=== PATIENT | male | born 1985 | race Caucasian/White ===

== ENCOUNTER → 2018-05-03 16:22 | Outpatient (CLI) | payer MEDICAID, SELFPAY ==
--- NOTE | 2018-05-03 16:32 | CT_ITS ---
STUDY: CT BRAIN WITH AND WITHOUT CONTRAST REASON FOR EXAM: Male, 32 years old. Hit right eye with sledgehammer. Right periorbital pain, light sensitivity. History of bipolar disorder. RADIATION DOSAGE (If Supplied By Facility): CTDIvol = ( 39.78 ) mGy, DLP = ( 1891.52 ) mGycm TECHNIQUE: Transaxial CT imaging of the brain was performed pre and post contrast administration. The examination was performed with intravenous administration of 100 ml of Isovue 300 contrast material. Individualized dose optimization techniques were used for this CT. COMPARISON: None. FINDINGS: Normal soft tissue structures. Normal calvarium. Normal size ventricles and extra-axial spaces for the patient's age. Normal white matter tracts of the cerebral hemispheres. Normal basal ganglia and thalami. Normal brainstem. Normal cerebellum. There is no intracranial hemorrhage. No enhancing brain lesion. There are no findings of an acute ischemic infarction. Normal visualized paranasal sinuses. CT/Brain/Head W/WO Contrast IMPRESSION: Normal unenhanced and enhanced CT scan of the brain. Electronically Signed: Reinier Flores MD at 17:16 EDT , Service support ,
--- NOTE | 2018-05-03 16:33 | CT_ITS ---
STUDY: CT FACIAL BONES WITH CONTRAST REASON FOR EXAM: Male, 32 years old. Hit right eye with sledgehammer, right orbital pain and light sensitivity. RADIATION DOSAGE (If Supplied By Facility): CTDIvol = ( 39.78 ) mGy, DLP = ( 1891.52 ) mGycm TECHNIQUE: The patient was scanned in a multi detector CT scanner. Transaxial imaging was performed following the intravenous administration of 100 ml of Isovue 300 contrast material. Sagittal and coronal images were reconstructed. Individualized dose optimization techniques were used for this CT. COMPARISON: None. FINDINGS: Normal soft tissue structures. There are moderate accumulations of cerumen in the bilateral external auditory canals. Normal orbital stauffer and orbital contents. Normal nasal bones and anterior nasal spine. Normal facial bones. There is no demonstrated fracture. Subcentimeter soft tissue density of mucoperiosteal thickening versus polyp or mucous inclusion cyst noted at the anteromedial margin of the right maxillary sinus. CT/Sinus/Facial Bone WITH Contras IMPRESSION: No acute fracture of the facial bones. Electronically Signed: Reinier Flores MD at 17:33 EDT , Service support ,
== END ==
PROVIDERS: Family Provider Family Medicine; PCP Family Medicine; Visit Provider Family Medicine
DX: S05.91XA Unspecified injury of right eye and orbit, initial encounter (principal)
CPT/HCPCS: 70470; 70487; Q9967

== ENCOUNTER 2018-09-04 14:54 | Emergency (ER) | payer MEDICAID, SELFPAY ==
[2018-09-04 14:55] VITALS: BP 113/69; PULSE 104; RESP 16; TEMP 36.3; O2SAT 94; BMI 33.9
--- NOTE | 2018-09-04 14:58 | NURSING ---
NO OLD EKGS
--- NOTE | 2018-09-04 15:07 | RAD_ITS ---
STUDY: X-RAY CHEST REASON FOR EXAM: Male, 33 years old. Chest pain TECHNIQUE: Single AP portable view of the chest. COMPARISON: None. FINDINGS: The lungs are clear but incompletely expanded. There is no demonstrated pleural abnormality. Normal size heart. Normal mediastinum and ana m. Normal visualized pulmonary arteries. Normal visualized aortic arch and descending thoracic aorta. Normal visualized thoracic spine. Normal visualized ribs, clavicles, and shoulders. There is no demonstrated abnormality of the visualized soft tissue structures of the upper abdomen. RAD/Chest 1 View (Portable) IMPRESSION: No acute chest disease. Electronically Signed: Wyatt Riddle MD at 16:10 EST , Service support ,
--- NOTE | 2018-09-04 15:07 | EKG12_ITS ---
Test Reason : CP Blood Pressure : / mmHG Vent. Rate : 101 BPM Atrial Rate : 101 BPM P-R Int : 186 ms QRS Dur : 088 ms QT Int : 366 ms P-R-T Axes : 032 015 036 degrees QTc Int : 474 ms Sinus tachycardia Otherwise normal ECG Confirmed by ALISA RAYMOND, TELLY ([id number]), editor dictionary NATASHA BAZZI ([id number]) on 09/07/2018 1:20:42 PM Referred By: DANNA Confirmed By:TELLY CUELLAR MD
--- NOTE | 2018-09-04 15:09 | ED.VISSUMM ---
- ER Visit Summary Date of Service: 09/04/18 Chief Complaint: Chest pain History of Present Illness: The patient is a 33 M presenting with chest pain. Patient states it started 1 week ago. He states he has had constant pain for the past 1 week. He states the pain is sharp and is substernal. He denies radiation. Pain is worsened with coughing. He has mild shortness of breath associated with this. He denies nausea, vomiting, diaphoresis. He has no coronary artery disease risk factors, no PE/DVT risk factors. Physical Examination: Vitals are stable. HR 104. Patient is afebrile. Alert no acute distress. HEENT exam is unremarkable. Neck is supple. Lungs are clear and equal bilaterally. Chest wall tenderness to palpation with no crepitus Heart is regular rate and rhythm. Abdomen is soft nontender nondistended. Extremities are unremarkable. Skin is warm and dry. Remainder of exam is unremarkable. Emergency Department Course and Treatment: Patient was given aspirin on arrival. EKG is sinus tachycardia rate of 101. He was given Toradol IV. CBC, chemistries unremarkable. Troponin is negative. D-dimer is normal. Chest x-ray shows no acute process. Patient is resting comfortably on reevaluation. Advised to follow-up with primary care physician. Advised return to ED for worsening complaints. Disposition: Discharge home Impression: Chest wall pain This note was generated with [employer] dictation software. It may contain incorrect words, spelling, and punctuation that were not noted in review of the chart prior to signing ED Disposition - Plan for ED Patient: Chief Complaint: Chest Pain Instructions: ED Chest Pain Atypical Unkn Cause Referrals: Brandyn Reed [Primary Care Provider] -
--- NOTE | 2018-09-04 15:13 | ED.DCSUM_ITS ---
- ER Visit Summary Date of Service: 09/04/18 Chief Complaint: Chest pain History of Present Illness: The patient is a 33 M presenting with chest pain. Patient states it started 1 week ago. He states he has had constant pain for the past 1 week. He states the pain is sharp and is substernal. He denies ra diation. Pain is worsened with coughing. He has mild shortness of breath associated with this. He denies nausea, vomiting, diaphoresis. He has no coronary artery disease risk factors, no PE/DVT risk factors. Physical Examination: Vitals are stable. HR 104. Patient is afebrile. Alert no acute distress. HEENT exam is unremarkable. Neck is supple. Lungs are clear and equal bilaterally. Chest wall tenderness to palpation with no crepitus Heart is regular rate and rhythm. Abdomen is soft nontender nondistended. Extremities are unremarkable. Skin is warm and dry. Remainder of exam is unremarkable. Emergency Department Course and Treatment: Patient was given aspirin on arrival. EKG is sinus tachycardia rate of 101. He was given Toradol IV. CBC, chemistries unremarkable. Troponin is negative. D-dimer is normal. Chest x- ray shows no acute process. Patient is resting comfortably on reevaluation. Advised to follow-up with primary care physician. Advised return to ED for worsening complaints. Disposition: Discharge home Impression: Chest wall pain This note was generated with blabfeed dictation software. It may contain incorrect words, spelling, and punctuation that were not noted in review of the chart prior to signing ED Disposition - Plan for ED Patient: Chief Complaint: Chest Pain Instructions: ED Chest Pain Atypical Unkn Cause Referrals: Brandyn Reed [Primary Care Provider] -
[2018-09-04] MEDS: Aspirin 81 MG TAB.CHEW 324 MG PO (15:18)
[2018-09-04] MEDS: Ketorolac 30 MG/ML Syringe IV (15:18)
[2018-09-04 15:27] LABS: Absolute Lymphocyte Count 2.44 X10^3/ul (0.83-4.51); Absolute Neutrophil Count 3.8 X10^3/uL (2.0-7.7); Basophil# 0.04 X10^3/uL; Basophil% 0.6 % (0-1); Eosinophil# 0.24 X10^3/uL; Eosinophils% 3.3 % (0-5); Hematocrit 40.8 % (40-54); Hemoglobin 13.4 g/dl (13.0-16.5); Lymphocyte # 2.44 X10^3/ul (4.0); Lymphocyte % 33.8 % (19-41); Mean Corp Hgb Conc 32.8 g/gl (32-36); Mean Corpuscular Hgb 30.9 pg (27.0-32.0); Mean Platelet Vol. 9.6 fl (6.2-12.0); Monocyte# 0.71 X10^3/uL; Monocyte% 9.8 % (0-10); Neutrophil # 3.77 X10^3/uL (2.7-7.7); Neutrophil % 52.4 % (47-70); POSITIVE COUNT NO; POSITIVE DIFFERENTIAL NO; POSITIVE MORPHOLOGY NO; Platelet Count 329 K/mm3 (150-450); RBC Distribution Width CV 12.6 % (11.6-14.6); RBC Distribution Width SD 43.3 fl (35.1-43.9); Red Blood Count 4.34 M/mm3 (4.6-6.2); White Blood Count 7.2 K/mm3 (4.4-11.0)
[2018-09-04 15:33] LABS: D-Dimer Quantitative (DVT/PE) 0.32 FEU/ug/m (0.27-0.49)
[2018-09-04 15:40] LABS: Anion Gap 9 (5-15); BUN 11 mg/dL (7-18); BUN/Creat Ratio 10.9 RATIO (10-20); Calcium,Total 8.4 mg/dL (8.5-10.1); Chloride 108 mmol/L (98-107); Creatinine, Serum 1.01 mg/dL (0.70-1.30); EST Glomerular Filtration Rate 91 mL/min (>60); Est Glom Filt Rate - Afr Amer 110 mL/min (>60); Glucose 100 mg/dL (74-106); Potassium 4.3 mmol/L (3.5-5.1); Sodium Level 142 mmol/L (136-145)
--- NOTE | 2018-09-04 15:54 | ED.RN ---
THIS RN CALLED [facility] 2X WITH NO ANSWER TO OBTAIN CONSENT TO TREAT FOR PT. VOICE MESSAGE LEFT ON VOICEMAIL TO CALL BACK TO ER. [facility] ALSO CONTACTED TO OBTAIN MED LIST. AWAITING FAX.
--- NOTE | 2018-09-04 16:30 | ED.DEP ---
ED Disposition - Plan for ED Patient: Chief Complaint: Chest Pain Instructions: ED Chest Pain Atypical Unkn Cause Referrals: Brandyn Reed [Primary Care Provider] -
[2018-09-04 17:01] VITALS: BP 128/79; PULSE 100; RESP 23; O2SAT 93
== END 2018-09-04 17:03 | disposition home or self-care (01) ==
LOC: ED 15:37
PROVIDERS: Emergency Provider Emergency Medicine; Family Provider Family Medicine; PCP Family Medicine
DX: R07.89 Other chest pain (principal); R00.0 Tachycardia, unspecified; R19.7 Diarrhea, unspecified; F31.9 Bipolar disorder, unspecified; Z79.899 Other long term (current) drug therapy
CPT/HCPCS: 71045; 80048; 80178; 84484; 85025; 85379; 93005; 96374; 99285; J7030; A4216

== ENCOUNTER 2018-10-19 20:30 | Emergency (ER) | payer MEDICAID, SELFPAY ==
[2018-10-19 20:32] VITALS: BP 135/69; PULSE 118; RESP 16; TEMP 36.4; O2SAT 95; BMI 34.4
--- NOTE | 2018-10-19 20:45 | ED.RN ---
pt will be placed on one on one observation.
--- NOTE | 2018-10-19 20:47 | ED.RN ---
pt presents to ed via police for suicidal ideation. pt states to this rn that he wants to be with his father. pt's father a few weeks ago. pt states that he would hang himself. When asked about prior attempts, he stated he has tried to hang himself in the past.
--- NOTE | 2018-10-19 20:52 | ED.DCSUM_ITS ---
- ER Visit Summary Date of Service: 10/19/18 Chief Complaint: Depressed and suicidal History of Present Illness: The patient is a 33 M history of depression and schizophrenia. Patient states his father of pancreatic cancer within the last several weeks. He is depressed about this and states I want to be with my dad. States she is depressed and suicidal. Currently living in a skilled nursing. He states in the last 2 days he has made statements about harming himself. He denies any overdose. He has been hospitalized for similar symptoms in the past but that was around 7 years ago. Physical Examination: Well-appearing young male. Vital signs are stable. He is afebrile. He does not look septic or toxic. No distress. I do not smell alcohol no other signs of toxidrome. He is awake alert and cooperative. He is currently not violent nor verbally abusive. H EENT exam unremarkable. Neck nontender. No lymphadenopathy. No signs of trauma. Lungs clear to auscultation bilaterally. Heart tachycardic rate about 110. No murmur. Chest wall nontender. Abdomen soft nontender. No signs of trauma. Patient is moving all 4 extremities. Neurovascular intact. No track earl. No signs of trauma. Calves are nontender without edema. Back nontender. Neurologically is awake alert with no focal motor deficits. Test Results: ED mental health evaluation, labs and crisis evaluation. CBC normal. BMP unremarkable. Normal gap. Tox came positive for methamphetamine. Alcohol negative. Emergency Department Course and Treatment: Patient doing well awaiting crisis evaluation. Treatment Plan: [] Disposition: [] Impression: Acute depression with suicidal ideation History of schizophrenia and depression This note was generated with PaymentWorksation software. It may contain incorrect words, spelling, and punctuation that were not noted in review of the chart prior to signing ED Disposition - Plan for ED Patient: Chief Complaint: Suicidal Referrals: Leonard Dejesus Chi, MD [Primary Care Provider] -
--- NOTE | 2018-10-19 20:58 | NURSING ---
[facility] CALLED ASKING ABOUT ADDITIONAL PATIENTS AND I INFORMED THEM ABOUT HIM AND THEY WILL BE COMING IN.
[2018-10-19 21:16] LABS: Amphetamine Urine VISTA NEGATIVE (<1000 ng/mL); Barbiturate Urine VISTA NEGATIVE (< 200 ng/mL); Benzodiazepine Urine VISTA NEGATIVE (< 200 ng/mL); Cocaine Urine VISTA NEGATIVE (< 300 ng/mL); Ecstacy Urine VISTA POSITIVE (< 500 ng/mL); Methadone Urine VISTA NEGATIVE (< 300 ng/mL); PCP Urine VISTA NEGATIVE (< 25 ng/mL); THC Urine VISTA NEGATIVE (< 50 ng/mL); Vista UDS pH Range 6
[2018-10-19 21:23] LABS: Absolute Lymphocyte Count 2.45 X10^3/ul (0.83-4.51); Absolute Neutrophil Count 4.5 X10^3/uL (2.0-7.7); Basophil# 0.04 X10^3/uL; Basophil% 0.5 % (0-1); Eosinophil# 0.21 X10^3/uL; Eosinophils% 2.6 % (0-5); Hematocrit 40.5 % (40-54); Hemoglobin 13.5 g/dl (13.0-16.5); Lymphocyte # 2.45 X10^3/ul (4.0); Lymphocyte % 30.1 % (19-41); Mean Corp Hgb Conc 33.3 g/gl (32-36); Mean Corpuscular Hgb 31.1 pg (27.0-32.0); Mean Corpuscular Volume 93.3 fL (80-94); Mean Platelet Vol. 9.2 fl (6.2-12.0); Monocyte# 0.95 X10^3/uL; Monocyte% 11.7 % (0-10); Neutrophil # 4.49 X10^3/uL (2.7-7.7); Platelet Count 340 K/mm3 (150-450); RBC Distribution Width CV 12.4 % (11.6-14.6); RBC Distribution Width SD 41.4 fl (35.1-43.9); Red Blood Count 4.34 M/mm3 (4.6-6.2); White Blood Count 8.2 K/mm3 (4.4-11.0)
[2018-10-19 21:25] LABS: POSITIVE COUNT NO; POSITIVE DIFFERENTIAL NO; POSITIVE MORPHOLOGY NO
[2018-10-19 21:30] VITALS: RESP 16
[2018-10-19 21:33] LABS: Anion Gap 10 (5-15); BUN 19 mg/dL (7-18); BUN/Creat Ratio 20.1 RATIO (10-20); Calcium,Total 8.9 mg/dL (8.5-10.1); Chloride 106 mmol/L (98-107); Creatinine, Serum 0.95 mg/dL (0.70-1.30); EST Glomerular Filtration Rate 98 mL/min (>60); Est Glom Filt Rate - Afr Amer 118 mL/min (>60); Glucose 108 mg/dL (74-106); Sodium Level 141 mmol/L (136-145)
[2018-10-19 22:30] VITALS: RESP 17
[2018-10-20] MEDS: traZODone 100 MG Tablet PO (00:03)
[2018-10-20] MEDS: MELATONIN 3 MG TABLET PO (00:03)
[2018-10-20 00:05] VITALS: BP 122/101; PULSE 87; RESP 16; O2SAT 94
--- NOTE | 2018-10-20 00:11 | EKG12_ITS ---
Test Reason : Blood Pressure : / mmHG Vent. Rate : 087 BPM Atrial Rate : 087 BPM P-R Int : 196 ms QRS Dur : 090 ms QT Int : 392 ms P-R-T Axes : 018 013 024 degrees QTc Int : 471 ms Normal sinus rhythm Normal ECG Confirmed by ALISA RAYMOND, TELLY ([id number]), web content editor NATASHA BAZZI ([id number]) on 10/23/2018 8:57:30 AM Referred By: CLINT Confirmed By:TELLY CUELLAR MD
[2018-10-20] MEDS: Divalproex Sodium 250 MG Tablet PO (00:19)
[2018-10-20 00:35] LABS: Bacteria 0 SEEN /hpf (None Seen); Mucous, Urine 0 SEEN /hpf (<or=2+); Red Blood Cells-Urine 0 SEEN /hpf (0-5); Squamous Epithelial Cells - UA 0 SEEN /hpf (0-5); White Blood Cells 0 SEEN /hpf (0-5)
[2018-10-20 00:36] LABS: Color, Urine Yellow (Yellow); Glucose, Dipstick Normal (Normal); Ketone-Dipstick Negative (Negative); Leukocyte Esterase-Dipstick Negative /ul (Negative); Nitrite-Dipstick Negative (Negative); Occult Blood-Urine Negative /ul (Negative); Protein-Dipstick Negative (Negative); Specific Gravity, Urine 1.015 (1.002-1.030); Urine Bilirubin Dipstick Negative (Negative); Urine Clarity Clear (Clear); Urine Urobilinogen Normal (Normal); Urine pH 6.5 (5.0 - 8.0)
[2018-10-20 00:55] LABS: AST(SGOT) 11 U/L (15-37); Alanine Aminotransfer ALT/SGPT 37 U/L (16-61); Albumin, Serum 3.7 g/dL (3.2-5.0); Alkaline Phosphatase 64 U/L (45-117); Globulin 3.9 g/dL (2.2-4.2); Protein, Total 7.6 g/dL (6.4-8.2)
[2018-10-20 01:25] VITALS: RESP 16
[2018-10-20 03:11] VITALS: BP 126/96; PULSE 93; RESP 18; O2SAT 95
[2018-10-20 03:14] VITALS: TEMP 36.6
--- NOTE | 2018-10-20 03:33 | ED.RN ---
CALLED REPORT TO [facility]. CALLED PT'S MEDICAL GUARDIAN HERIBERTO TO NOTIFY OF TRANSFER.
[2018-10-20 03:35] VITALS: BP 126/96; PULSE 93; RESP 18; TEMP 36.6; O2SAT 95
== END 2018-10-20 04:20 | disposition short-term general hospital (02) ==
PROVIDERS: Emergency Provider Emergency Medicine; Family Provider Family Medicine Geriatric Medicine; PCP Family Medicine Geriatric Medicine
DX: F32.9 Major depressive disorder, single episode, unspecified (principal); F20.9 Schizophrenia, unspecified; R45.851 Suicidal ideations; R00.0 Tachycardia, unspecified; Z79.82 Long term (current) use of aspirin; Z79.899 Other long term (current) drug therapy
CPT/HCPCS: 36415; 80048; 80076; 80307; 80320; 81001; 85025; 93005; 99285; G0480

== ENCOUNTER 2018-11-08 19:18 | Emergency (ER) | payer MEDICAID, SELFPAY ==
[2018-11-08 19:19] VITALS: BP 138/101; PULSE 119; RESP 17; TEMP 36.3; O2SAT 97; BMI 28.7
--- NOTE | 2018-11-08 19:38 | ED.VISSUMM ---
- ER Visit Summary Date of Service: 11/08/18 Chief Complaint: Suicidal ideation History of Present Illness: The patient is a 33 M who presents for evaluation of suicidal ideation. Patient states he saw someone today that looked like his mother. It made him want to hang himself. He had similar symptoms earlier this month where he wanted to hang himself to be closer to his dad, who recently . Patient states he has tried to hang himself in the past. He states he is hearing voices as well that are telling him to kill himself. He denies doing anything to hurt himself today other than picking a scab off of his knee. He denies any alcohol or drug use. Physical Examination: Vital signs: afebrile, hemodynamically stable, no hypoxia on room air General: well nourished, well developed, in no distress Skin: warm, dry, no rash, no pallor, right knee with erythematous region consistent with recently picked off scab, no fresh lacerations earl noted HEENT: normocephalic and atraumatic; PERRL, EOMI, moist mucous membranes Cardiovascular: regular rate and rhythm without murmurs, no peripheral edema, 2+ pulses all distal extremities Respiratory: No increased work of breathing, lungs are clear to auscultation bilaterally, no rales, rhonchi or wheezing Abdominal: Abdomen is soft, nontender with normoactive bowel sounds, no guarding or rebound, no masses MSK: Moves all extremities, no deformities, normal strength Neuro: Awake and alert, oriented ?4. No facial droop, sensation and motor function intact and symmetric Test Results: Abnormal Lab Results 11/08/18 11/08/18 11/08/18 19:43 19:54 19:54 WBC 7.7 RBC 4.45 L Hgb 13.9 Hct 41.6 MCV 93.5 MCH 31.2 MCHC 33.4 RDW 12.3 RDW Differential 41.9 Plt Count 344 MPV 9.6 Immature Gran % (Auto) 0.100 Neut % (Auto) 59.1 Lymph % (Auto) 23.6 [place] % (Auto) 14.1 H Eos % (Auto) 2.7 Baso % (Auto) 0.4 Absolute Neuts (auto) 4.5 Absolute Lymphs (auto) 1.81 Total Counted Not Reportable Sodium 140 Potassium 3.8 Chloride 108 H Carbon Dioxide 23.0 Anion Gap 9 BUN 14 Creatinine 0.94 Estim Creat Clear Calc 116.49 Est GFR (MDRD) Af Amer 119 Est GFR (MDRD) Non-Af 98 BUN/Creatinine Ratio 14.8 Glucose 95 Calcium 8.5 Urine Opiates Screen NEGATIVE Urine Methadone Screen NEGATIVE Ur Barbiturates Screen NEGATIVE Ur Phencyclidine Scrn NEGATIVE Ur Amphetamines Screen NEGATIVE U Methamphetamin-MDMA POSITIVE H U Benzodiazepines Scrn NEGATIVE Urine Cocaine Screen NEGATIVE U Cannabinoids Screen NEGATIVE Ur Drug Screen Comment Ethyl Alcohol 11/08/18 19:54 WBC RBC Hgb Hct MCV MCH MCHC RDW RDW Differential Plt Count MPV Immature Gran % (Auto) Neut % (Auto) Lymph % (Auto) [place] % (Auto) Eos % (Auto) Baso % (Auto) Absolute Neuts (auto) Absolute Lymphs (auto) Total Counted Sodium Potassium Chloride Carbon Dioxide Anion Gap BUN Creatinine Estim Creat Clear Calc Est GFR (MDRD) Af Amer Est GFR (MDRD) Non-Af BUN/Creatinine Ratio Glucose Calcium Urine Opiates Screen Urine Methadone Screen Ur Barbiturates Screen Ur Phencyclidine Scrn Ur Amphetamines Screen U Methamphetamin-MDMA U Benzodiazepines Scrn Urine Cocaine Screen U Cannabinoids Screen Ur Drug Screen Comment Ethyl Alcohol < 3.0 Medications Given Discontinued Medications Acetaminophen (Tylenol) 650 mg PO X1 ONE Stop: 11/08/18 23:07 Last Admin: 11/08/18 23:21 Dose: 650 mg Emergency Department Course and Treatment: Medical screening exam was performed. Patient's workup remarkable only for tox screen positive for methamphetamine, which may be related to patient's use of ADHD medication. Patient was evaluated by crisis services, and patient into an inpatient facility is currently underway. Patient was given his evening medications. He also was given Tylenol for a headache. Final disposition will be pending placement for further inpatient management of suicidal ideation and auditory hallucinations. Treatment Plan: [] Disposition: [] Impression: Suicidal ideation, auditory hallucinations This note was generated with [employer] Industryation software. It may contain incorrect words, spelling, and punctuation that were not noted in review of the chart prior to signing ED Disposition - Plan for ED Patient: Chief Complaint: Suicidal Referrals: Leonard Dejesus Chi, MD [Primary Care Provider] -
--- NOTE | 2018-11-08 19:40 | CM.ED ---
SOCIAL WORK NOTE PT SENT IN BY [facility] FOR EVALUATION. [facility]IS TO ASSESS PT.
[2018-11-08 20:19] LABS: Anion Gap 9 (5-15); BUN 14 mg/dL (7-18); BUN/Creat Ratio 14.8 RATIO (10-20); Calcium,Total 8.5 mg/dL (8.5-10.1); Chloride 108 mmol/L (98-107); Creatinine, Serum 0.94 mg/dL (0.70-1.30); EST Glomerular Filtration Rate 98 mL/min (>60); Est Glom Filt Rate - Afr Amer 119 mL/min (>60); Estimated Creatinine Clearance 116.49 ml/min; Glucose 95 mg/dL (74-106); Potassium 3.8 mmol/L (3.5-5.1); Sodium Level 140 mmol/L (136-145)
[2018-11-08 20:25] LABS: Amphetamine Urine VISTA NEGATIVE (<1000 ng/mL); Barbiturate Urine VISTA NEGATIVE (< 200 ng/mL); Benzodiazepine Urine VISTA NEGATIVE (< 200 ng/mL); Cocaine Urine VISTA NEGATIVE (< 300 ng/mL); Ecstacy Urine VISTA POSITIVE (< 500 ng/mL); Methadone Urine VISTA NEGATIVE (< 300 ng/mL); PCP Urine VISTA NEGATIVE (< 25 ng/mL); THC Urine VISTA NEGATIVE (< 50 ng/mL); Vista UDS pH Range 6
[2018-11-08 20:32] LABS: Absolute Lymphocyte Count 1.81 X10^3/ul (0.83-4.51); Absolute Neutrophil Count 4.5 X10^3/uL (2.0-7.7); Basophil# 0.03 X10^3/uL; Basophil% 0.4 % (0-1); Eosinophil# 0.21 X10^3/uL; Eosinophils% 2.7 % (0-5); Hematocrit 41.6 % (40-54); Hemoglobin 13.9 g/dl (13.0-16.5); Lymphocyte # 1.81 X10^3/ul (4.0); Lymphocyte % 23.6 % (19-41); Mean Corp Hgb Conc 33.4 g/gl (32-36); Mean Corpuscular Hgb 31.2 pg (27.0-32.0); Mean Corpuscular Volume 93.5 fL (80-94); Mean Platelet Vol. 9.6 fl (6.2-12.0); Monocyte# 1.08 X10^3/uL; Monocyte% 14.1 % (0-10); Neutrophil # 4.54 X10^3/uL (2.7-7.7); Neutrophil % 59.1 % (47-70); Platelet Count 344 K/mm3 (150-450); RBC Distribution Width CV 12.3 % (11.6-14.6); RBC Distribution Width SD 41.9 fl (35.1-43.9); Red Blood Count 4.45 M/mm3 (4.6-6.2); White Blood Count 7.7 K/mm3 (4.4-11.0)
[2018-11-08 20:34] LABS: POSITIVE COUNT NO; POSITIVE DIFFERENTIAL NO; POSITIVE MORPHOLOGY NO
[2018-11-08 20:45] LABS: Alcohol, Blood (Medical)-Serum < 3.0 mg/dL
[2018-11-08] MEDS: Acetaminophen 325 MG Tablet 650 MG PO (23:21)
[2018-11-09] VITALS (17 sets, daily range): BP systolic 118–138; BP diastolic 74–97; PULSE 71–92; RESP 14–18; TEMP 36.3–36.5; O2SAT 94–99
[2018-11-09] MEDS: Divalproex Sodium 250 MG Tablet PO ×4 (00:26→17:46)
[2018-11-09] MEDS: Lithium Carbonate 300mg Capsule 300 MG PO ×3 (00:27→22:00)
[2018-11-09] MEDS: buPROPion (XL) 150 MG TABLET.XL PO ×2 (00:27→21:59)
[2018-11-09] MEDS: MELATONIN 3 MG TABLET PO ×2 (00:28→21:59)
[2018-11-09] MEDS: traZODone 100 MG Tablet PO ×2 (00:28→21:59)
--- NOTE | 2018-11-09 00:55 | NURSING ---
ACCEPTED TO [place] [id number] REPORT [phone]
[2018-11-09] MEDS: Acetaminophen 500 MG Tablet 1000 MG PO (05:59)
--- NOTE | 2018-11-09 07:21 | ED.RN ---
GERMAINE WITH [facility]ARE WE DON'T HAVE ANYONE AVAILABLE UNTIL LATER THIS AFTERNOON, ANITARY
--- NOTE | 2018-11-09 07:25 | ED.RN ---
JONATHAN WITH [facility] WE WILL BE THERE BETWEEN
--- NOTE | 2018-11-09 11:49 | ED.RN ---
ATTEMPTED TO CALL REPORT TO [facility], WILLEM DUDLEY STOPPED REPORTED WHEN SHE HEARD HE WAS BORDERLINE MRDD. EXPLAINED PT WAS HIGH FUNCTIONING AND ABLE TO DO EVERYTHING FOR HIMSELF. RN STATES SHE NEEDED TO TALK TO HER CHARGE NURSE AND WOULD CALL BACK. ANIRUDH THE CHARGE NURSE CALLED BACK STATING THEY DON'T THINK THEY CAN ACCEPT HIM AND AFTER LOOKING AT THE PAPERWORK THEY FEEL HE SHOULD BE ABLE TO GO TO THE LONG-TERM ON HIS SAFETY PAL SINCE HE IS AT A LONG-TERM. SAGE IS GOING TO CALL THE [facility]SELING [facility] AND CALL BACK TO LET US KNOW IF HE IS ACCEPTED OR NOT.
--- NOTE | 2018-11-09 12:23 | ED.RN ---
ANIRUDH CALLED AND [facility] IS REFUSING TH PATIENT. SHE STATED SHE IS CALLING THE [facility] TO LET THEM KNOW.
--- NOTE | 2018-11-09 12:24 | ED.RN ---
TREVER FROM THE COUNSELING C[facility] CALLED STATING MILENA IS ON THE MS3 AND WILL BE DOWN TO SEE THE PATIENT WHEN SHE IS DONE.
--- NOTE | 2018-11-09 15:21 | ED.RN ---
SPOKE WITH TREVER ABBOTT IS WORKING ON FINDING A PLACE FOR HIM FROM THE OFFICE HERE
--- NOTE | 2018-11-09 16:13 | EKG12_ITS ---
Test Reason : MEDICAL CLEARANCE Blood Pressure : / mmHG Vent. Rate : 070 BPM Atrial Rate : 070 BPM P-R Int : 184 ms QRS Dur : 094 ms QT Int : 406 ms P-R-T Axes : 034 025 053 degrees QTc Int : 438 ms Normal sinus rhythm Normal ECG Confirmed by KEYLA RAYMOND, THONY ([id number]), fashion editor NATASHA BAZZI ([id number]) on 11/13/2018 3:31:33 PM Referred By: ADITYA Confirmed By:THONY RAMIRES MD
[2018-11-09 16:49] LABS: ALB/GLOB Ratio 0.9 RATIO (0.9-2.4); AST(SGOT) 16 U/L (15-37); Alanine Aminotransfer ALT/SGPT 35 U/L (16-61); Albumin, Serum 3.6 g/dL (3.2-5.0); Alkaline Phosphatase 62 U/L (45-117); Anion Gap 7 (5-15); BUN 11 mg/dL (7-18); BUN/Creat Ratio 12.6 RATIO (10-20); Calcium,Total 8.7 mg/dL (8.5-10.1); Chloride 109 mmol/L (98-107); Creatinine, Serum 0.87 mg/dL (0.70-1.30); EST Glomerular Filtration Rate 108 mL/min (>60); Est Glom Filt Rate - Afr Amer 130 mL/min (>60); Estimated Creatinine Clearance 125.86 ml/min; Globulin 4.2 g/dL (2.2-4.2); Glucose 98 mg/dL (74-106); Potassium 4.2 mmol/L (3.5-5.1); Protein, Total 7.8 g/dL (6.4-8.2); Sodium Level 140 mmol/L (136-145)
[2018-11-09 17:01] LABS: Bacteria 0 SEEN /hpf (None Seen); Mucous, Urine 0 SEEN /hpf (<or=2+); Red Blood Cells-Urine 0 SEEN /hpf (0-5); Squamous Epithelial Cells - UA 0 SEEN /hpf (0-5); White Blood Cells 0 SEEN /hpf (0-5)
[2018-11-09 17:22] LABS: Color, Urine Yellow (Yellow); Glucose, Dipstick Normal (Normal); Ketone-Dipstick Negative (Negative); Leukocyte Esterase-Dipstick Negative /ul (Negative); Nitrite-Dipstick Negative (Negative); Occult Blood-Urine Negative /ul (Negative); Protein-Dipstick Negative (Negative); Urine Bilirubin Dipstick Negative (Negative); Urine Clarity Clear (Clear); Urine Urobilinogen Normal (Normal)
--- NOTE | 2018-11-09 17:24 | ED.RN ---
HERIBERTO DAS GUARDIAN [phone] TO BE CALLED WITH UPDATES
--- NOTE | 2018-11-09 19:24 | ED.RN ---
DISCUSSED WITH MD TO CANCEL 24 HOUR REFLEX URINE COLLECTION ORDER
[2018-11-09 20:43] LABS: AST(SGOT) 13 U/L (15-37); Alanine Aminotransfer ALT/SGPT 38 U/L (16-61); Albumin, Serum 3.7 g/dL (3.2-5.0); Alkaline Phosphatase 65 U/L (45-117); Bilirubin, Direct 0.09 mg/dL (0.00-0.30); Globulin 4.2 g/dL (2.2-4.2); Protein, Total 7.9 g/dL (6.4-8.2)
[2018-11-09 20:50] LABS: Valproic Acid (Depakene) Level 58 ug/mL (50-100)
[2018-11-09] MEDS: Ondansetron ODT 4 MG Tablet PO (21:02)
[2018-11-09] MEDS: LORazepam 1 MG Tablet 2 MG PO (22:18)
[2018-11-10] VITALS (18 sets, daily range): BP systolic 102–166; BP diastolic 77–90; PULSE 68–101; RESP 12–18; O2SAT 94–98
--- NOTE | 2018-11-10 00:42 | ED.RN ---
patient belongings list completed electronically on worklist; pt had multiple shirts and pairs of pants
[2018-11-10] MEDS: Lithium Carbonate 300mg Capsule 300 MG PO ×2 (09:22→21:20)
[2018-11-10] MEDS: Divalproex Sodium 250 MG Tablet PO ×3 (09:22→19:37)
--- NOTE | 2018-11-10 10:43 | NURSING ---
PER LINDSEY, AUNDREA. PATIENT ACCEPTED AT [facility]. 4 PEOPLE AHEAD OF HIM
--- NOTE | 2018-11-10 18:49 | ED.RN ---
LINDSEY IS ON SITE WORKING ON THIS PT
[2018-11-10] MEDS: traZODone 100 MG Tablet PO (21:20)
[2018-11-10] MEDS: MELATONIN 3 MG TABLET PO (21:20)
[2018-11-10] MEDS: buPROPion (XL) 150 MG TABLET.XL PO (21:20)
--- NOTE | 2018-11-10 22:10 | ED.RN ---
attempted to call legal guardian at this time. voice mailbox is full and unable to accept message. will attempt to call back later
== END 2018-11-10 22:38 ==
LOC: ED 19:46
PROVIDERS: Emergency Medicine; Emergency Provider Emergency Medicine; Family Provider Family Medicine Geriatric Medicine; PCP Family Medicine Geriatric Medicine
DX: R45.851 Suicidal ideations (principal); R44.0 Auditory hallucinations; Z91.5 Personal history of self-harm; Z79.82 Long term (current) use of aspirin; Z79.899 Other long term (current) drug therapy; R51 Headache
CPT/HCPCS: 80048; 80053; 80076; 80164; 80178; 80307; 80320; 81001; 85025; 93005; 99284; G0480

== ENCOUNTER → 2018-11-24 16:47 | Outpatient (CLI) | payer MEDICAID, SELFPAY ==
[2018-11-24 12:30] VITALS: BMI 32.3
== END ==
PROVIDERS: Family Provider Family Medicine Geriatric Medicine; PCP Family Medicine Geriatric Medicine; Referring Provider Physician Assistant Medical; Visit Provider Physician Assistant Medical
DX: N39.0 Urinary tract infection, site not specified (principal)
CPT/HCPCS: 87086

== ENCOUNTER 2018-12-01 20:53 | Emergency (ER) | payer MEDICAID, SELFPAY ==
[2018-12-01 20:53] VITALS: BMI 32.3
[2018-12-01 20:54] VITALS: BP 129/96; PULSE 130; RESP 18; TEMP 37.1; O2SAT 95; BMI 31.6
--- NOTE | 2018-12-01 21:06 | ED.RN ---
attempted to contact emergency guardian at this time. left message at this time to call back
--- NOTE | 2018-12-01 21:10 | ED.RN ---
patient legal guardian called back at this time
[2018-12-01 21:25] LABS: Absolute Lymphocyte Count 2.14 X10^3/ul (0.83-4.51); Absolute Neutrophil Count 5.4 X10^3/uL (2.0-7.7); Basophil# 0.03 X10^3/uL; Basophil% 0.3 % (0-1); Eosinophil# 0.19 X10^3/uL; Eosinophils% 2.2 % (0-5); Hematocrit 41.1 % (40-54); Hemoglobin 13.4 g/dl (13.0-16.5); Lymphocyte # 2.14 X10^3/ul (4.0); Lymphocyte % 24.9 % (19-41); Mean Corp Hgb Conc 32.6 g/gl (32-36); Mean Corpuscular Hgb 30.7 pg (27.0-32.0); Mean Corpuscular Volume 94.1 fL (80-94); Monocyte# 0.87 X10^3/uL; Monocyte% 10.1 % (0-10); Neutrophil # 5.38 X10^3/uL (2.7-7.7); Neutrophil % 62.5 % (47-70); POSITIVE COUNT NO; POSITIVE DIFFERENTIAL NO; POSITIVE MORPHOLOGY NO; Platelet Count 316 K/mm3 (150-450); RBC Distribution Width CV 12.5 % (11.6-14.6); RBC Distribution Width SD 42.8 fl (35.1-43.9); Red Blood Count 4.37 M/mm3 (4.6-6.2); White Blood Count 8.6 K/mm3 (4.4-11.0)
[2018-12-01 21:38] LABS: Alcohol, Blood (Medical)-Serum < 3.0 mg/dL
[2018-12-01 21:39] LABS: Anion Gap 10 (5-15); BUN 11 mg/dL (7-18); BUN/Creat Ratio 10.3 RATIO (10-20); Calcium,Total 8.7 mg/dL (8.5-10.1); Chloride 110 mmol/L (98-107); Creatinine, Serum 1.07 mg/dL (0.70-1.30); EST Glomerular Filtration Rate 85 mL/min (>60); Est Glom Filt Rate - Afr Amer 103 mL/min (>60); Estimated Creatinine Clearance 99.11 ml/min; Glucose 115 mg/dL (74-106); Sodium Level 143 mmol/L (136-145)
[2018-12-01 21:44] LABS: Amphetamine Urine VISTA NEGATIVE (<1000 ng/mL); Barbiturate Urine VISTA NEGATIVE (< 200 ng/mL); Benzodiazepine Urine VISTA NEGATIVE (< 200 ng/mL); Cocaine Urine VISTA NEGATIVE (< 300 ng/mL); Ecstacy Urine VISTA POSITIVE (< 500 ng/mL); Methadone Urine VISTA NEGATIVE (< 300 ng/mL); PCP Urine VISTA NEGATIVE (< 25 ng/mL); THC Urine VISTA NEGATIVE (< 50 ng/mL); Vista UDS pH Range 6
[2018-12-01 21:53] VITALS: RESP 16
--- NOTE | 2018-12-01 21:53 | ED.RN ---
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
--- NOTE | 2018-12-01 21:55 | EKG12_ITS ---
Test Reason : MHC Blood Pressure : / mmHG Vent. Rate : 099 BPM Atrial Rate : 099 BPM P-R Int : 190 ms QRS Dur : 092 ms QT Int : 362 ms P-R-T Axes : 031 018 035 degrees QTc Int : 464 ms Normal sinus rhythm Abnormal ECG Confirmed by TELLY CUELLAR MD ([id number]), photo editor NATASHA BAZZI ([id number]) on 12/04/2018 9:18:16 AM Referred By: Raven Encinas Confirmed By:TELLY CUELLAR MD
[2018-12-01 22:00] VITALS: RESP 16
[2018-12-01 22:19] LABS: AST(SGOT) 17 U/L (15-37); Alanine Aminotransfer ALT/SGPT 36 U/L (16-61); Albumin, Serum 3.7 g/dL (3.2-5.0); Alkaline Phosphatase 65 U/L (45-117); Bilirubin, Direct 0.07 mg/dL (0.00-0.30); Globulin 3.8 g/dL (2.2-4.2); Protein, Total 7.5 g/dL (6.4-8.2)
[2018-12-01 22:23] LABS: Valproic Acid (Depakene) Level 74 ug/mL (50-100)
--- NOTE | 2018-12-01 22:52 | ED.RN ---
CRISIS AT THE BEDSIDE
[2018-12-01 23:00] VITALS: RESP 17
[2018-12-02] VITALS (10 sets, daily range): BP systolic 123–129; BP diastolic 90–97; PULSE 49–112; RESP 14–16; TEMP 36.5; O2SAT 96–99
--- NOTE | 2018-12-02 00:18 | ED.VISSUMM ---
- ER Visit Summary Date of Service: 12/02/18 Chief Complaint: Suicidal ideation History of Present Illness: The patient is a 33 M who reports suicidal ideation since 11 AM. He states he has a plan to hang himself. He tells me he tried to squeeze his neck with his hand to choke himself. He did not lose consciousness. Past history significant for a bipolar disorder, schizophrenia, seizures, ADHD. Physical Examination: Vital signs remarkable for heart rate of 130 on triage. Patient is lying in bed no acute distress. He is alert and cooperative. Head neck examination is unremarkable with no sign of trauma. He has no ecchymosis on his neck. There is no carotid bruit. Heart is regular rate and rhythm. Lungs sounds are clear. Abdomen is soft nontender. Psychiatric evaluation reveals depressed affect with continued suicidal thoughts. Test Results: CBC and chemistry studies grossly unremarkable. LFTs normal. Tox screen positive for MDMA. EtOH negative. [place] is 0.60. Valproic acid is 74. EKG is sinus at 99 with no sign of acute ischemia. Emergency Department Course and Treatment: Patient has been cooperative in his room with a sitter. I spoke with Sierra from the counseling center who presented to evaluate the patient. Patient will likely require transfer and she is working on options at this point. Treatment Plan: [] Disposition: Transfer Impression: Suicidal ideation This note was generated with [employer] dictation software. It may contain incorrect words, spelling, and punctuation that were not noted in review of the chart prior to signing ED Disposition - Plan for ED Patient: Referrals: Leonard Dejesus Chi, MD [Primary Care Provider] -
[2018-12-02] MEDS: Acetaminophen 500 MG Tablet 1000 MG PO (01:05)
--- NOTE | 2018-12-02 03:17 | ED.RN ---
Patient has been accepted to [facility] nurse to nurse [phone]
--- NOTE | 2018-12-02 04:04 | ED.RN ---
REPORT CALLED TO CONNIE DUDLEY. TRANSPORTATION TO ADMINISTRATOR OF HOME HEALTH PT AT 10
--- NOTE | 2018-12-02 06:00 | ED.RN ---
SPOKE WITH CHETAN FROM PHARMACY. NO THERAPEUTIC INTERCHANGE FOR ATOMOXETINE AT [facility]
[2018-12-02] MEDS: Benztropine 2 MG Tablet 1 MG PO (08:31)
[2018-12-02] MEDS: Divalproex Sodium 250 MG Tablet PO (08:31)
[2018-12-02] MEDS: traZODone 100 MG Tablet PO (08:33)
[2018-12-02] MEDS: Lithium Carbonate 300mg Capsule 300 MG PO (08:34)
[2018-12-02] MEDS: buPROPion (XL) 150 MG TABLET.XL PO (08:34)
[2018-12-02] MEDS: MELATONIN 3 MG TABLET PO (08:34)
== END 2018-12-02 10:16 ==
PROVIDERS: Emergency Provider Emergency Medicine; Family Provider Family Medicine Geriatric Medicine; PCP Family Medicine Geriatric Medicine
DX: R45.851 Suicidal ideations (principal); F20.9 Schizophrenia, unspecified; F31.9 Bipolar disorder, unspecified; G40.909 Epilepsy, unspecified, not intractable, without status epilepticus; F90.9 Attention-deficit hyperactivity disorder, unspecified type; Z79.899 Other long term (current) drug therapy
CPT/HCPCS: 36415; 80048; 80076; 80164; 80178; 80307; 80320; 85025; 93005; 99285; G0480

== ENCOUNTER → 2018-12-10 10:20 | Outpatient (CLI) | payer MEDICAID, SELFPAY ==
[2018-12-01 20:54] VITALS: BMI 31.6
--- NOTE | 2018-12-10 10:26 | RAD_ITS ---
STUDY: X-RAY - RIGHT HAND REASON FOR EXAM: Male, 33 years old. Pain worse involving the third digit following injury. Bruising. TECHNIQUE: 3 view(s) of the hand. COMPARISON: None. FINDINGS: Normal radiocarpal articulation. Normal distal radioulnar joint. Normal visualized carpal bones. Normal carpal articulations Normal carpometacarpal articulation of the thumb. Normal second through fifth carpometacarpal joints. Normal metacarpi. Normal metacarpophalangeal joint of the thumb. Normal interphalangeal joint of the thumb. Normal proximal and distal phalanges of the thumb. Normal metacarpophalangeal joints of the second through fifth fingers. Normal proximal and distal interphalangeal joints of the second through fifth fingers. Nondisplaced avulsion type fracture at the base of the middle phalanx of the third digit along its volar aspect. Soft tissue swelling. RAD/Hand Min 3 Views IMPRESSION: Nondisplaced avulsion type fracture at the base of the middle phalanx of the third digit along its volar aspect. Soft tissue swelling. Electronically Signed: Alexis Hernandez MD at 14:06 EST , Service support ,
== END ==
PROVIDERS: Family Provider Family Medicine Geriatric Medicine; PCP Family Medicine Geriatric Medicine; Referring Provider Family Medicine Geriatric Medicine; Visit Provider Family Medicine Geriatric Medicine
DX: S62.652A Nondisplaced fracture of middle phalanx of right middle finger, initial encounter for closed fracture (principal); X58.XXXA Exposure to other specified factors, initial encounter; Y93.9 Activity, unspecified; Y92.9 Unspecified place or not applicable; Y99.9 Unspecified external cause status
CPT/HCPCS: 73130

== ENCOUNTER 2018-12-24 19:51 | Emergency (ER) | payer MEDICAID, SELFPAY ==
[2018-12-24 19:52] VITALS: BP 137/96; PULSE 110; RESP 18; TEMP 36.2; O2SAT 95; BMI 32.3
--- NOTE | 2018-12-24 20:24 | CM.ED ---
Social Work Assessment Reason for Consult: Suicidal Ideation Informant: Kalyan Pritchard RN Information obtained from: Medical record and pt. Introduced self and role at [facility]. The pt is alert and oriented x3, but does have a volunteer guardian, La Bryan. Pt presents with flat affect as evidenced by minimal eye contact, an no change in tone of voice or expression throughout conversation. Living Arrangements: Pt reports to live at a [facility]. Denies concerns about safety in [place] or concerns of obtaining necessities. States that his guardian lives locally and sees him frequently. Supports: Pt identifies La (LG), Felipe (LG's spouse), Jaime (LGs son) and his own mother as his primary supports. Stressors: States that it is the 3 month anniversary of his step-father's . Claims that this is continually a stressor for him this time of month and he was very close with his step-father. He also identifies his brother ([id number]) as a stressor. States that he was supposed to go to a longterm house today, and never showed up and now he is concerned about him and thinks the police will be after him. Emotional support provided to pt. Mental Health Hx: Pt is established with a therapist at [facility] and sees Dr. Salazar at the counseling center. Saw his therapist today and has an appointment with Dr. Salazar next . Reports that he contact crisis today and they recommended that he come into the ED for evaluation. Pt reports SI. Plan would be to cut himself or hang himself. States I have pretty good veins so there will be a lot of blood. Reports that he would cut himself with a razor or comb, or hang himself with the cable wires in his room. Does have a hx of a past attempt when he was college and states he spent a year in the [facility] [place]. Pt has been psychiatrically hospitalized his past 3 visits to the ED for SI. Pt to be evaluated by crisis for psychiatric hospitalization for stabilization. Substance Abuse Hx: Pt reports ETOH abuse approximately 10 years ago, but denies any current drug use. Intervention(s): C-SSRS completed and confirm that pt is at a high risk for suicide lethality. Crisis to evaluate for psychiatric hospitalization. PLAN: Crisis to evaluate for psychiatric hospitalization. Tamie Miller, STRAIGHTENING MACHINE OPERATOR, JACQUELINE
[2018-12-24 20:46] LABS: Absolute Lymphocyte Count 2.64 X10^3/ul (0.83-4.51); Absolute Neutrophil Count 7.3 X10^3/uL (2.0-7.7); Basophil# 0.05 X10^3/uL; Basophil% 0.5 % (0-1); Eosinophil# 0.36 X10^3/uL; Eosinophils% 3.3 % (0-5); Hematocrit 41.6 % (40-54); Hemoglobin 13.7 g/dl (13.0-16.5); Lymphocyte # 2.64 X10^3/ul (4.0); Lymphocyte % 23.9 % (19-41); Mean Corp Hgb Conc 32.9 g/gl (32-36); Mean Corpuscular Hgb 30.8 pg (27.0-32.0); Mean Corpuscular Volume 93.5 fL (80-94); Mean Platelet Vol. 9.7 fl (6.2-12.0); Monocyte# 0.73 X10^3/uL; Monocyte% 6.6 % (0-10); Neutrophil # 7.26 X10^3/uL (2.7-7.7); Neutrophil % 65.6 % (47-70); Platelet Count 367 K/mm3 (150-450); RBC Distribution Width CV 12.5 % (11.6-14.6); RBC Distribution Width SD 42.5 fl (35.1-43.9); Red Blood Count 4.45 M/mm3 (4.6-6.2); White Blood Count 11.1 K/mm3 (4.4-11.0)
[2018-12-24 20:48] LABS: POSITIVE COUNT NO; POSITIVE DIFFERENTIAL NO; POSITIVE MORPHOLOGY NO
[2018-12-24 20:59] LABS: Amphetamine Urine VISTA NEGATIVE (<1000 ng/mL); Barbiturate Urine VISTA NEGATIVE (< 200 ng/mL); Benzodiazepine Urine VISTA NEGATIVE (< 200 ng/mL); Cocaine Urine VISTA NEGATIVE (< 300 ng/mL); Ecstacy Urine VISTA NEGATIVE (< 500 ng/mL); Methadone Urine VISTA NEGATIVE (< 300 ng/mL); PCP Urine VISTA NEGATIVE (< 25 ng/mL); THC Urine VISTA NEGATIVE (< 50 ng/mL); Vista UDS pH Range 6
[2018-12-24 21:02] LABS: Anion Gap 10 (5-15); BUN 16 mg/dL (7-18); BUN/Creat Ratio 17.2 RATIO (10-20); Calcium,Total 8.6 mg/dL (8.5-10.1); Chloride 110 mmol/L (98-107); Creatinine, Serum 0.93 mg/dL (0.70-1.30); EST Glomerular Filtration Rate 100 mL/min (>60); Est Glom Filt Rate - Afr Amer 121 mL/min (>60); Estimated Creatinine Clearance 114.03 ml/min; Glucose 121 mg/dL (74-106); Potassium 4.3 mmol/L (3.5-5.1); Sodium Level 143 mmol/L (136-145)
--- NOTE | 2018-12-24 21:11 | ED.RN ---
CALLED CRISIS TO SEE THIS PT
--- NOTE | 2018-12-24 21:12 | ED.VISSUMM ---
- ER Visit Summary Date of Service: 12/24/18 Chief Complaint: Suicidal ideation History of Present Illness: The patient is a 33 M presenting with suicidal ideation. Patient states that he has been very depressed about his father dying. He states this occurred 3 months ago. He has plan to hang himself or cut himself. He has past suicide attempt with hanging and cutting. He was recently admitted to [facility] and was discharged 2.5 weeks ago per the patient. He has a history of bipolar disorder. He denies alcohol or drug use. Physical Examination: Vitals are stable. Patient is afebrile. Alert no acute distress. HEENT exam is unremarkable. Neck is supple. Lungs are clear and equal bilaterally. Heart is regular rate and rhythm. Abdomen is soft nontender nondistended. Extremities are unremarkable. Skin is warm and dry. No focal neurologic deficit. Depressed affect with suicidal ideation Remainder of exam is unremarkable. Emergency Department Course and Treatment: CBC, chemistries unremarkable. Tox and alcohol are negative. Discussed with the counseling center for evaluation. Disposition: Per counseling center Impression: Suicidal ideation This note was generated with [employer] dictation software. It may contain incorrect words, spelling, and punctuation that were not noted in review of the chart prior to signing ED Disposition - Plan for ED Patient: Referrals: Leonard Dejesus Chi, MD [Primary Care Provider] -
--- NOTE | 2018-12-24 21:23 | ED.RN ---
LINDSEY CALLED BACK, SHE WILL BE IN
[2018-12-24 22:14] VITALS: PULSE 89; RESP 16; O2SAT 97
[2018-12-25 01:02] VITALS: BP 131/80; PULSE 85; RESP 16; TEMP 36.4; O2SAT 94
--- NOTE | 2018-12-25 03:02 | ED.RN ---
PER CRISIS, PT IS ACCEPTED TO [facility], INFO GIVEN TO RN TO CALL REPORT
[2018-12-25 03:18] VITALS: BP 131/81; PULSE 81; RESP 16; RESP 18; O2SAT 95
--- NOTE | 2018-12-25 04:45 | ED.RN ---
THIS NURSE CALLED [facility] AND GAVE THEM AN ETA OF ARRIVING AT THEIR FACILITY AROUND 10:00AM.
[2018-12-25 04:57] VITALS: BP 122/87; PULSE 81; RESP 16; O2SAT 98
[2018-12-25 05:01] VITALS: TEMP 36.4
[2018-12-25 07:44] VITALS: BP 126/89; PULSE 80; RESP 16; O2SAT 92
--- NOTE | 2018-12-25 07:45 | ED.RN ---
Pt alert and awake. Remains cooperative and talking with sitter. waiting on ordered breakfast. I spoke with guardian and she is enroute to bring clothes for admit to [facility].
[2018-12-25 09:28] VITALS: BP 124/92; PULSE 87; RESP 16; O2SAT 95
== END 2018-12-25 09:47 ==
LOC: ED 21:18
PROVIDERS: Emergency Provider Emergency Medicine; Family Provider Family Medicine Geriatric Medicine; PCP Family Medicine Geriatric Medicine
DX: R45.851 Suicidal ideations (principal); F31.9 Bipolar disorder, unspecified; Z79.899 Other long term (current) drug therapy; Z91.5 Personal history of self-harm
CPT/HCPCS: 80048; 80307; 80320; 85025; 99284; G0480

== ENCOUNTER 2019-01-06 18:27 | Emergency (ER) | payer MEDICAID, SELFPAY ==
[2019-01-06 18:28] VITALS: BP 133/88; RESP 120; TEMP 37.1; O2SAT 96; BMI 33.2
--- NOTE | 2019-01-06 19:24 | ED.DCSUM_ITS ---
- ER Visit Summary Date of Service: 01/06/19 Chief Complaint: Abdominal pain History of Present Illness: The patient is a 33 M who complains of generalized abdominal pain along with nausea, vomiting, and diarrhea since yesterday. He denies fever. He denies any prior abdominal surgeries. Past history significant for ADHD, bipolar disorder, schizophrenia. Physical Examination: Vital signs significant for heart rate of 120. Patient is lying in bed no acute distress. He is nontoxic appearing. Head and neck examination unremarkable. Heart is slightly tachycardic and regular. Lung sounds are clear. Abdomen is soft with mild diffuse tenderness. No guarding or rebound. Hyperactive bowel sounds are noted throughout. Test Results: CBC and chemistry studies unremarkable. Liver function test normal. Sherburn and Depakote unremarkable. Acute abdominal series shows constipation with no obstruction. Emergency Department Course and Treatment: Patient was given IV fluids, Bentyl, and Zofran. On repeat evaluation he continued to complain of nausea. He was given a dose of Reglan. At this time patient still complains of some nausea. He has not any vomiting here. We discharged home tonight. He will be given Zo sheridan for home. He will be given prescriptions for Zofran and MiraLAX. Treatment Plan: [] Disposition: Discharge Impression: 1. Abdominal pain 2. Constipation This note was generated with [employer] dictation software. It may contain incorrect words, spelling, and punctuation that were not noted in review of the chart prior to signing ED Disposition - Plan for ED Patient: Referrals: Leonard Dejesus Chi, MD [Primary Care Provider] -
[2019-01-06] MEDS: 0.9% Normal Saline 1,000 ML 150 ML IV (19:35)
[2019-01-06] MEDS: Dicyclomine 10 MG Capsule 20 MG PO (19:37)
[2019-01-06] MEDS: Ondansetron 4 MG/2 ML Vial IV (19:37)
--- NOTE | 2019-01-06 19:43 | RAD_ITS ---
STUDY: X-RAY - ACUTE ABDOMINAL SERIES REASON FOR EXAM: Male, 33 years old. Diarrhea. Vomiting. Chest pain. TECHNIQUE: Single view of the chest. Supine, 4 view(s) of the abdomen were obtained. COMPARISON: September 04, 2018. FINDINGS: Low lung volumes. Cardiac silhouette unremarkable. Pulmonary vascularity unremarkable. Aorta unremarkable. No focal patchy airspace opacities. No pleural effusions. Osseous structures intact. No pneumothorax. Left transitional lumbosacral anatomy. No intra-abdominal free air. Nonobstructive bowel gas pattern. Constipation. RAD/Acute Abdomen Inc Chest IMPRESSION: No acute cardiopulmonary findings Nonobstructive bowel gas pattern Constipation Electronically Signed: Felipe Green DO at 20:57 EDT Tel , Service support ,
[2019-01-06 19:50] LABS: Absolute Lymphocyte Count 2.22 X10^3/ul (0.83-4.51); Absolute Neutrophil Count 3.6 X10^3/uL (2.0-7.7); Basophil# 0.03 X10^3/uL; Basophil% 0.4 % (0-1); Eosinophil# 0.36 X10^3/uL; Eosinophils% 5.2 % (0-5); Hematocrit 42.2 % (40-54); Hemoglobin 13.6 g/dl (13.0-16.5); Lymphocyte # 2.22 X10^3/ul (4.0); Mean Corp Hgb Conc 32.2 g/gl (32-36); Mean Corpuscular Volume 93.2 fL (80-94); Mean Platelet Vol. 9.6 fl (6.2-12.0); Monocyte# 0.77 X10^3/uL; Monocyte% 11.1 % (0-10); Neutrophil # 3.56 X10^3/uL (2.7-7.7); Neutrophil % 51.3 % (47-70); POSITIVE COUNT NO; POSITIVE DIFFERENTIAL NO; POSITIVE MORPHOLOGY NO; Platelet Count 338 K/mm3 (150-450); RBC Distribution Width CV 12.7 % (11.6-14.6); Red Blood Count 4.53 M/mm3 (4.6-6.2); White Blood Count 6.9 K/mm3 (4.4-11.0)
[2019-01-06 20:01] LABS: AST(SGOT) 24 U/L (15-37); Alanine Aminotransfer ALT/SGPT 45 U/L (16-61); Albumin, Serum 3.6 g/dL (3.2-5.0); Alkaline Phosphatase 67 U/L (45-117); Anion Gap 7 (5-15); BUN 15 mg/dL (7-18); BUN/Creat Ratio 15.9 RATIO (10-20); Bilirubin, Direct 0.07 mg/dL (0.00-0.30); Chloride 109 mmol/L (98-107); Creatinine, Serum 0.94 mg/dL (0.70-1.30); EST Glomerular Filtration Rate 98 mL/min (>60); Est Glom Filt Rate - Afr Amer 118 mL/min (>60); Estimated Creatinine Clearance 112.82 ml/min; Globulin 3.8 g/dL (2.2-4.2); Glucose 110 mg/dL (74-106); Potassium 4.5 mmol/L (3.5-5.1); Protein, Total 7.4 g/dL (6.4-8.2); Sodium Level 144 mmol/L (136-145)
[2019-01-06 20:10] LABS: Valproic Acid (Depakene) Level 59 ug/mL (50-100)
[2019-01-06 21:09] VITALS: BP 122/84; PULSE 101; O2SAT 94
[2019-01-06] MEDS: proMETHazine 25 MG/ML Syringe 12.5 MG IV (21:37)
--- NOTE | 2019-01-06 22:06 | ED.DEP ---
ED Disposition - Plan for ED Patient: Disposition: Home or Assisted Living Instructions: ED Constipation Prescriptions: Ondansetron [Zofran Odt] 4 mg PO Q8H PRN PRN #10 tablet PRN Reason: Nausea Referrals: Leonard Dejesus Chi, MD [Primary Care Provider] - 3-5 Days if not improving
[2019-01-06] MEDS: Ondansetron ODT 4 MG Tablet PO (22:26)
[2019-01-06 22:27] VITALS: BP 111/78; PULSE 93; RESP 16; O2SAT 94
== END 2019-01-06 22:27 | disposition home or self-care (01) ==
PROVIDERS: Emergency Provider Emergency Medicine; Family Provider Family Medicine Geriatric Medicine; PCP Family Medicine Geriatric Medicine
DX: R10.84 Generalized abdominal pain (principal); K59.00 Constipation, unspecified; R11.2 Nausea with vomiting, unspecified; R19.7 Diarrhea, unspecified; F20.9 Schizophrenia, unspecified; F31.9 Bipolar disorder, unspecified; F90.9 Attention-deficit hyperactivity disorder, unspecified type; Z79.899 Other long term (current) drug therapy; Z87.891 Personal history of nicotine dependence
CPT/HCPCS: 74022; 80048; 80076; 80164; 80178; 85025; 96361; 96374; 96375; 99284; J7030; J2405

== ENCOUNTER → 2019-02-18 12:34 | Outpatient (CLI) | payer MEDICAID, SELFPAY | PROVIDERS: Family Provider Family Medicine Geriatric Medicine; PCP Family Medicine Geriatric Medicine; Referring Provider Family Medicine Geriatric Medicine; Visit Provider Family Medicine Geriatric Medicine | DX: R69 Illness, unspecified (principal) | CPT/HCPCS: 87633 ==

== ENCOUNTER 2019-02-21 14:42 | Emergency (ER) | payer MEDICAID, SELFPAY ==
[2019-02-21 14:47] VITALS: BP 117/83; PULSE 79; RESP 16; TEMP 36.6; O2SAT 95; BMI 31.7
[2019-02-21 15:15] LABS: Hematocrit 41.1 % (40-54); Hemoglobin 13.6 g/dl (13.0-16.5); Red Blood Count 4.54 M/mm3 (4.6-6.2); White Blood Count 6.7 K/mm3 (4.4-11.0)
[2019-02-21 15:16] LABS: Absolute Lymphocyte Count 2.58 X10^3/ul (0.83-4.51); Basophil# 0.04 X10^3/uL; Basophil% 0.6 % (0-1); Eosinophil# 0.32 X10^3/uL; Eosinophils% 4.8 % (0-5); Lymphocyte # 2.58 X10^3/ul (4.0); Lymphocyte % 38.6 % (19-41); Mean Corp Hgb Conc 33.1 g/gl (32-36); Mean Corpuscular Volume 90.5 fL (80-94); Mean Platelet Vol. 9.5 fl (6.2-12.0); Monocyte# 0.75 X10^3/uL; Monocyte% 11.2 % (0-10); Neutrophil # 2.98 X10^3/uL (2.7-7.7); Neutrophil % 44.5 % (47-70); POSITIVE COUNT NO; POSITIVE DIFFERENTIAL NO; POSITIVE MORPHOLOGY NO; Platelet Count 386 K/mm3 (150-450); RBC Distribution Width CV 12.6 % (11.6-14.6); RBC Distribution Width SD 41.3 fl (35.1-43.9)
[2019-02-21 15:22] LABS: Anion Gap 5 (5-15); BUN 12 mg/dL (7-18); BUN/Creat Ratio 15.5 RATIO (10-20); Calcium,Total 8.4 mg/dL (8.5-10.1); Chloride 107 mmol/L (98-107); Creatinine, Serum 0.77 mg/dL (0.70-1.30); EST Glomerular Filtration Rate 123 mL/min (>60); Est Glom Filt Rate - Afr Amer 149 mL/min (>60); Estimated Creatinine Clearance 137.73 ml/min; Glucose 90 mg/dL (74-106); Potassium 4.1 mmol/L (3.5-5.1); Sodium Level 140 mmol/L (136-145)
--- NOTE | 2019-02-21 15:28 | ED.VISSUMM ---
- ER Visit Summary Date of Service: 02/21/19 Chief Complaint: Suicidal History of Present Illness: The patient is a 33 M presenting with suicidal ideation. He states he has had multiple deaths in his family and this contributes to his suicidal ideation. Patient states he has been suicidal for the past month and a half. He states he was last hospitalized 2 months ago at [facility]. He has been hearing voices that are telling him to jump off a bridge. He has plan to lay down in traffic and get run over. He denies other complaints. Physical Examination: Vitals are stable. Patient is afebrile. Alert no acute distress. HEENT exam is unremarkable. Neck is supple. Lungs are clear and equal bilaterally. Heart is regular rate and rhythm. Abdomen is soft nontender nondistended. Extremities are unremarkable. Skin is warm and dry. No focal neurologic deficit. Depressed affect, suicidal ideation Remainder of exam is unremarkable. Emergency Department Course and Treatment: CBC, chemistries unremarkable. Alcohol negative. Tox positive for opiates. Depakote level 73, lithium level 0.40. Discussed with the counseling center for evaluation. Disposition: Per counseling center Impression: Suicidal ideation This note was generated with [employer] dictation software. It may contain incorrect words, spelling, and punctuation that were not noted in review of the chart prior to signing ED Disposition - Plan for ED Patient: Referrals: Leonard Dejesus Chi, MD [Primary Care Provider] -
[2019-02-21 15:29] LABS: Alcohol, Blood (Medical)-Serum < 3.0 mg/dL; Valproic Acid (Depakene) Level 73 ug/mL (50-100)
[2019-02-21 15:42] VITALS: PULSE 80; RESP 14
--- NOTE | 2019-02-21 15:49 | ED.RN ---
CALLED THE COUNSELING CENTER TO LET THEM PATIENT IS CLEARED. MILENA WILL BE COMING
[2019-02-21 16:18] LABS: Amphetamine Urine VISTA NEGATIVE (<1000 ng/mL); Barbiturate Urine VISTA NEGATIVE (< 200 ng/mL); Benzodiazepine Urine VISTA NEGATIVE (< 200 ng/mL); Cocaine Urine VISTA NEGATIVE (< 300 ng/mL); Ecstacy Urine VISTA NEGATIVE (< 500 ng/mL); Methadone Urine VISTA NEGATIVE (< 300 ng/mL); PCP Urine VISTA NEGATIVE (< 25 ng/mL); THC Urine VISTA NEGATIVE (< 50 ng/mL); Vista UDS pH Range 7
[2019-02-21 16:42] VITALS: RESP 14
[2019-02-21 18:19] VITALS: BP 119/88; PULSE 75; RESP 16; O2SAT 97
== END 2019-02-21 18:34 ==
LOC: ED 16:33
PROVIDERS: Emergency Provider Emergency Medicine; Family Provider Family Medicine Geriatric Medicine; PCP Family Medicine Geriatric Medicine
DX: R45.851 Suicidal ideations (principal); F25.9 Schizoaffective disorder, unspecified; F31.9 Bipolar disorder, unspecified; F90.9 Attention-deficit hyperactivity disorder, unspecified type; F79 Unspecified intellectual disabilities; Z79.899 Other long term (current) drug therapy
CPT/HCPCS: 80048; 80164; 80178; 80307; 80320; 85025; 99285; G0480

== ENCOUNTER → 2019-04-03 10:00 | Outpatient (CLI) | payer MEDICAID, SELFPAY ==
[2019-04-03 09:37] LABS: Hematocrit 41.7 % (40-54); Hemoglobin 13.7 g/dl (13.0-16.5); Mean Corp Hgb Conc 32.9 g/gl (32-36); Mean Corpuscular Hgb 30.2 pg (27.0-32.0); Mean Corpuscular Volume 92.1 fL (80-94); Mean Platelet Vol. 9.8 fl (6.2-12.0); Platelet Count 245 K/mm3 (150-450); RBC Distribution Width CV 13.4 % (11.6-14.6); RBC Distribution Width SD 44.9 fl (35.1-43.9); Red Blood Count 4.53 M/mm3 (4.6-6.2); Scan Indicated on CBC? Y/N NO; White Blood Count 5.3 K/mm3 (4.4-11.0)
[2019-04-03 10:29] LABS: Hemoglobin A1c 5.1 % (4.2-6.3)
[2019-04-03 10:38] LABS: Valproic Acid (Depakene) Level 72 ug/mL (50-100)
[2019-04-03 11:20] LABS: ALB/GLOB Ratio 0.8 RATIO (0.9-2.4); AST(SGOT) 13 U/L (15-37); Alanine Aminotransfer ALT/SGPT 21 U/L (16-61); Albumin, Serum 3.2 g/dL (3.2-5.0); Alkaline Phosphatase 67 U/L (45-117); Anion Gap 7 (5-15); BUN 11 mg/dL (7-18); BUN/Creat Ratio 12.4 RATIO (10-20); Calcium,Total 8.6 mg/dL (8.5-10.1); Chloride 112 mmol/L (98-107); Creatinine, Serum 0.89 mg/dL (0.70-1.30); EST Glomerular Filtration Rate 105 mL/min (>60); Est Glom Filt Rate - Afr Amer 127 mL/min (>60); Glucose 103 mg/dL (74-106); Potassium 4.1 mmol/L (3.5-5.1); Protein, Total 7.2 g/dL (6.4-8.2); Sodium Level 145 mmol/L (136-145); Thyroid Stim Hormone (TSH) 1.53 uIU/mL (0.358-3.74)
== END ==
PROVIDERS: Family Provider Family Medicine Geriatric Medicine; PCP Family Medicine Geriatric Medicine; Referring Provider Psychiatry & Neurology Psychiatry; Visit Provider Psychiatry & Neurology Psychiatry
DX: Z79.899 Other long term (current) drug therapy (principal)
CPT/HCPCS: 36415; 80053; 80164; 80178; 82140; 83036; 84146; 84443; 85027

== ENCOUNTER → 2019-04-04 09:46 | Outpatient (CLI) | payer MEDICAID, SELFPAY | PROVIDERS: Family Provider Family Medicine Geriatric Medicine; PCP Family Medicine Geriatric Medicine; Visit Provider Family Medicine Geriatric Medicine | DX: I10 Essential (primary) hypertension (principal) ==

== ENCOUNTER 2019-05-16 08:41 | Emergency (ER) | payer MEDICAID, SELFPAY ==
[2019-05-16 08:42] VITALS: BP 134/98; PULSE 94; RESP 18; TEMP 36.6; O2SAT 97; BMI 30.9
--- NOTE | 2019-05-16 09:00 | EKG12_ITS ---
Test Reason : Blood Pressure : / mmHG Vent. Rate : 074 BPM Atrial Rate : 074 BPM P-R Int : 196 ms QRS Dur : 090 ms QT Int : 386 ms P-R-T Axes : 035 006 035 degrees QTc Int : 428 ms Normal sinus rhythm Inferior infarct , age undetermined Abnormal ECG Confirmed by KOLTON RAYMOND, FADY ([id number]), editor at large NATASHA BAZZI ([id number]) on 05/20/2019 1:08:22 PM Referred By: YUNG Confirmed By:STEPHIE HI MD
--- NOTE | 2019-05-16 09:01 | ED.VISSUMM ---
- ER Visit Summary Date of Service: 05/16/19 Chief Complaint: Seizure History of Present Illness: The patient is a 33 M history of a seizure disorder as a child had recent seizures. Recently was taken off the Depakote they were using as a mood stabilizer. He lives in an area [facility]. Patient was doing his normal activities if they want any other room and sat down and they found him having a seizure they said lasted less than 3 minutes. No fall. No injury. He has had no recent head trauma. He is actually had a work-up in the last year or so for seizures and had a negative EEG and a CAT scan that was negative. Is not been having headaches. No other fever or neck pain. Physical Examination: Young male no acute distress. Vital signs are stable afebrile. HEENT exam unremarkable. Atraumatic. Pupils round reactive light. Normal speech. No bite earl on his tongue. Neck nontender no meningismus. No lymphadenopathy. Lungs clear to auscultation bilaterally. Heart regular rate and rhythm no murmur rate about 90. Abdomen soft and nontender. Patient is moving all 4 extremities. Neurovascular intact. And nontender. No deformities. No edema. Is equal symmetrical deaf and hard of hearing teacher strength. Equal symmetrical dorsi and plantar flexion. Neurologically is awake and alert with no focal motor or sensory deficits. NIH score of 0. Currently he is not acting post ictal. Test Results: See normal white count of 6. Electrolytes normal gap of 5. EKG sinus rhythm rate of 74 no acute signs of ischemia or dysrhythmia. Emergency Department Course and Treatment: Screening labs will be obtained. He has had a recent CAT scan he has no neurological findings had no trauma I do not think is necessary at this time. Repeat exam at 10:10 AM patient is doing well. He has had no further seizure activity. His neurologic exam remains normal. Treatment Plan: Discharge back to the [facility]. Continue current medications. Follow-up with neurology. They know to return if he has recurrent seizure. Disposition: Discharge Impression: Acute seizure This note was generated with [employer] dictation software. It may contain incorrect words, spelling, and punctuation that were not noted in review of the chart prior to signing ED Disposition - Plan for ED Patient: Referrals: Leonard Dejesus Chi, MD [Primary Care Provider] -
[2019-05-16 09:53] LABS: Absolute Lymphocyte Count 1.66 X10^3/uL (0.83-4.51); Absolute Neutrophil Count 4.3 X10^3/uL (2.0-7.7); Basophil# 0.04 X10^3/uL; Basophil% 0.6 % (0-1); Eosinophil# 0.17 X10^3/uL; Eosinophils% 2.5 % (0-5); Hematocrit 43.8 % (40-54); Hemoglobin 14.7 g/dL (13.0-16.5); Lymphocyte # 1.66 X10^3/ul (4.0); Lymphocyte % 24.8 % (19-41); Mean Corp Hgb Conc 33.6 g/dL (32-36); Mean Corpuscular Hgb 30.9 pg (27.0-32.0); Mean Corpuscular Volume 92.2 fL (80-94); Mean Platelet Vol. 9.2 fl (6.2-12.0); Monocyte# 0.56 X10^3/uL; Monocyte% 8.4 % (0-10); NRBC Flagged by Analyzer 0 % (0-5); Neutrophil # 4.26 X10^3/uL (2.7-7.7); Neutrophil % 63.6 % (47-70); Platelet Count 308 K/mm3 (150-450); RBC Distribution Width CV 12.6 % (11.6-14.6); RBC Distribution Width SD 42.7 fl (35.1-43.9); Red Blood Count 4.75 M/mm3 (4.6-6.2); White Blood Count 6.7 K/mm3 (4.4-11.0)
[2019-05-16 10:05] LABS: Anion Gap 5 (5-15); BUN 12 mg/dL (7-18); BUN/Creat Ratio 13.3 RATIO (10-20); Calcium,Total 9.5 mg/dL (8.5-10.1); Chloride 106 mmol/L (98-107); EST Glomerular Filtration Rate 103 mL/min (>60); Est Glom Filt Rate - Afr Amer 125 mL/min (>60); Estimated Creatinine Clearance 117.83 ml/min; Glucose 95 mg/dL (74-106); Potassium 4.1 mmol/L (3.5-5.1); Sodium Level 139 mmol/L (136-145)
--- NOTE | 2019-05-16 10:12 | ED.DEP ---
ED Disposition - Plan for ED Patient: Disposition: Home or Assisted Living Instructions: SEIZURE, Recurrent [Adult] Referrals: Leonard Dejesus Chi, MD [Primary Care Provider] - As soon as possible Bryce Singh MD [STAFF PHYSICIAN] - Additional Instructions: Continue current medications. Either follow-up with your current neurologist at work you up in the past that neuro care group or follow-up with local neurology here at [facility]. If he has another seizure he will need to return. He can go back to normal daily activities and work. I will not start him on seizure medications at this time but if he has recurrent additional seizures that may need to happen.
[2019-05-16 10:21] VITALS: BP 120/77; PULSE 64; RESP 15; O2SAT 98
== END 2019-05-16 10:23 | disposition home or self-care (01) ==
PROVIDERS: Emergency Provider Emergency Medicine; Family Provider Family Medicine Geriatric Medicine; PCP Family Medicine Geriatric Medicine
DX: G40.909 Epilepsy, unspecified, not intractable, without status epilepticus (principal); Z79.899 Other long term (current) drug therapy
CPT/HCPCS: 80048; 85025; 93005; 99285; A4216

== ENCOUNTER → 2019-06-07 12:28 | Outpatient (CLI) | payer MEDICAID, SELFPAY ==
[2019-05-16 08:42] VITALS: BMI 30.9
--- NOTE | 2019-06-07 12:35 | RAD_ITS ---
STUDY: X-RAY - LEFT KNEE REASON FOR EXAM: Male, 34 years old. Knee pain after injury while playing basketball. [place] pop when jumping. TECHNIQUE: 4 view(s) of the knee. COMPARISON: None. FINDINGS: Normal visualized distal femur. Normal visualized proximal tibia and fibula. Normal patella. There is no demonstrated fracture. Normal medial femorotibial compartment. Normal lateral femorotibial compartment. Normal patellofemoral articulation. Normal proximal tibiofibular articulation. There is minimal soft tissue prominence in the suprapatellar region suggesting a very small volume joint effusion. Focal calcification is seen in the subcutaneous tissues anterior to the tibial insertion of the patellar tendon. RAD/Knee 4 or More Views IMPRESSION: No acute fracture of the left knee. Electronically Signed: Reinier Flores MD at 14:08 EDT , Service support ,
== END ==
PROVIDERS: Family Provider Family Medicine Geriatric Medicine; PCP Family Medicine Geriatric Medicine; Referring Provider Family Medicine Geriatric Medicine; Visit Provider Family Medicine Geriatric Medicine
DX: M25.562 Pain in left knee (principal)
CPT/HCPCS: 73564

== ENCOUNTER 2019-06-09 19:04 | Emergency (ER) | payer MEDICAID, SELFPAY ==
[2019-06-09 19:05] VITALS: BP 134/110; PULSE 105; RESP 18; TEMP 36.7; O2SAT 95
[2019-06-09 20:04] VITALS: RESP 16
[2019-06-09 20:10] LABS: Absolute Lymphocyte Count 1.87 X10^3/uL (0.83-4.51); Absolute Neutrophil Count 5.1 X10^3/uL (2.0-7.7); Basophil# 0.04 X10^3/uL; Basophil% 0.5 % (0-1); Eosinophil# 0.09 X10^3/uL; Eosinophils% 1.2 % (0-5); Hematocrit 41.4 % (40-54); Hemoglobin 13.8 g/dL (13.0-16.5); Lymphocyte # 1.87 X10^3/ul (4.0); Lymphocyte % 24.4 % (19-41); Mean Corp Hgb Conc 33.3 g/dL (32-36); Mean Corpuscular Hgb 30.8 pg (27.0-32.0); Mean Corpuscular Volume 92.4 fL (80-94); Mean Platelet Vol. 8.9 fl (6.2-12.0); Monocyte# 0.54 X10^3/uL; NRBC Flagged by Analyzer 0 % (0-5); Neutrophil # 5.11 X10^3/uL (2.7-7.7); Neutrophil % 66.6 % (47-70); Platelet Count 339 K/mm3 (150-450); RBC Distribution Width CV 12.4 % (11.6-14.6); RBC Distribution Width SD 42.1 fl (35.1-43.9); Red Blood Count 4.48 M/mm3 (4.6-6.2); White Blood Count 7.7 K/mm3 (4.4-11.0)
[2019-06-09 20:40] LABS: ALB/GLOB Ratio 0.9 RATIO (0.9-2.4); AST(SGOT) 15 U/L (15-37); Alanine Aminotransfer ALT/SGPT 28 U/L (16-61); Albumin, Serum 3.7 g/dL (3.2-5.0); Alkaline Phosphatase 98 U/L (45-117); Anion Gap 6 (5-15); BUN 15 mg/dL (7-18); BUN/Creat Ratio 15.7 RATIO (10-20); Chloride 112 mmol/L (98-107); Creatinine, Serum 0.96 mg/dL (0.70-1.30); EST Glomerular Filtration Rate 96 mL/min (>60); Est Glom Filt Rate - Afr Amer 117 mL/min (>60); Estimated Creatinine Clearance 109.45 ml/min; Glucose 92 mg/dL (74-106); Potassium 3.8 mmol/L (3.5-5.1); Protein, Total 7.7 g/dL (6.4-8.2); Sodium Level 142 mmol/L (136-145)
[2019-06-09 20:56] LABS: Amphetamine Urine VISTA NEGATIVE (<1000 ng/mL); Barbiturate Urine VISTA NEGATIVE (< 200 ng/mL); Benzodiazepine Urine VISTA NEGATIVE (< 200 ng/mL); Cocaine Urine VISTA NEGATIVE (< 300 ng/mL); Ecstacy Urine VISTA NEGATIVE (< 500 ng/mL); Methadone Urine VISTA NEGATIVE (< 300 ng/mL); PCP Urine VISTA NEGATIVE (< 25 ng/mL); THC Urine VISTA NEGATIVE (< 50 ng/mL); Vista UDS pH Range 5
[2019-06-09 21:00] VITALS: RESP 18
--- NOTE | 2019-06-09 21:00 | ED.RN ---
CRISIS CALLED FOR EVAL
--- NOTE | 2019-06-09 21:00 | ED.VISSUMM ---
- ER Visit Summary Date of Service: 06/09/19 Chief Complaint: Suicidal and homicidal History of Present Illness: The patient is a 34 M with suicidal and homicidal thoughts. [facility] at a prison. It sounds like he was not allowed to use the phone. He threatened to kill 1 of the staff members as well as 1 of the other residents. He also threatened to kill himself with a knife. No attempt. Physical Examination: Afebrile and vital signs unremarkable. Alert and oriented. Patient has suicidal and homicidal thought content. Heart regular. Lungs clear. Abdomen soft. Skin unremarkable. Test Results: CBC, CMP, tox, alcohol unremarkable. Emergency Department Course and Treatment: Patient had suicide and homicide precautions. A pink slip was completed by police. His medical clearance testing was unremarkable. He is medically cleared for transfer and care at a psychiatric facility. We are awaiting crisis evaluation. Treatment Plan: As above Disposition: Pending crisis evaluation Impression: 1. Suicidal ideation. 2. Homicidal ideation This note was generated with [employer] dictation software. It may contain incorrect words, spelling, and punctuation that were not noted in review of the chart prior to signing ED Disposition - Plan for ED Patient: Referrals: Leonard Dejesus Chi, MD [Primary Care Provider] -
--- NOTE | 2019-06-09 21:03 | ED.RN ---
CRISIS CALLED BACK AT THIS TIME
--- NOTE | 2019-06-09 21:22 | ED.RN ---
CRISIS HERE TO SEE PATIENT AT THIS TIME
[2019-06-09 22:00] VITALS: RESP 20
[2019-06-09 23:00] VITALS: BP 137/75; PULSE 89; RESP 18; O2SAT 96
[2019-06-10 03:00] VITALS: BP 108/76; PULSE 72; RESP 15; O2SAT 93
--- NOTE | 2019-06-10 03:42 | ED.RN ---
PATIENT DENIED [facility] INFORMATION BEING SENT TO [facility] NOW
[2019-06-10 06:51] VITALS: BP 116/73; PULSE 75; RESP 15; O2SAT 93
--- NOTE | 2019-06-10 08:06 | ED.RN ---
SEVERAL ATTEMPTS WERE MADE TO CALL [id number] REPORT TO [facility] FOR TRANSFER OF PATIENT. NO CONTACT WAS MADE AND A MESSAGE WAS LEFT ON VOICEMAIL WITH INSTRUCTIONS TO CALL [facility] ED DONTE. FURTHER ATTEMPTS WILL BE MADE.
[2019-06-10] MEDS: Lithium Carbonate 300mg Capsule 300 MG PO (09:11)
[2019-06-10] MEDS: QUEtiapine 25 MG Tablet 50 MG PO (09:11)
[2019-06-10 09:31] VITALS: RESP 18
== END 2019-06-10 09:46 ==
PROVIDERS: Emergency Medicine; Emergency Provider Emergency Medicine; Family Provider Family Medicine Geriatric Medicine; PCP Family Medicine Geriatric Medicine
DX: F31.9 Bipolar disorder, unspecified (principal); R45.851 Suicidal ideations; R45.850 Homicidal ideations; Z79.899 Other long term (current) drug therapy
CPT/HCPCS: 36415; 80053; 80307; 80320; 85025; 99284; G0480

== ENCOUNTER → 2019-07-04 14:30 | Outpatient (CLI) | payer MEDICAID, SELFPAY ==
--- NOTE | 2019-07-04 14:33 | RAD_ITS ---
STUDY: X-RAY - ABDOMEN/PELVIS REASON FOR EXAM: Male, 34 years old. Fecal impaction. TECHNIQUE: AP supine and upright views of the abdomen and pelvis. COMPARISON: None. FINDINGS: Normal visualized lung bases. There is increased feces in the rectum. Increased feces is seen in the ascending and transverse colon. There is no small bowel dilatation or evidence of obstruction. There is no demonstrated free abdominal air. The visualized liver, spleen and kidneys are grossly normal in size and morphology. Normal soft tissue structures. Normal visualized osseous structures. RAD/Abd Inc Decub and/or Erect IMPRESSION: Increased colonic feces consistent with constipation. Electronically Signed: Abhinav Harvey DO at 22:50 EDT Tel [phone], Service support ,
== END ==
PROVIDERS: Family Provider Family Medicine Geriatric Medicine; PCP Family Medicine Geriatric Medicine; Referring Provider Family Medicine Geriatric Medicine; Visit Provider Family Medicine Geriatric Medicine
DX: K56.41 Fecal impaction (principal)
CPT/HCPCS: 74019

== ENCOUNTER 2019-07-21 21:25 | Emergency (ER) | payer MEDICAID, SELFPAY ==
[2019-07-21 21:26] VITALS: BP 154/96; PULSE 98; RESP 15; TEMP 36.4; O2SAT 96; BMI 29.3
[2019-07-21 22:00] VITALS: RESP 16
[2019-07-21 22:05] LABS: Absolute Lymphocyte Count 2.31 X10^3/uL (0.83-4.51); Absolute Neutrophil Count 4.5 X10^3/uL (2.0-7.7); Basophil# 0.05 X10^3/uL; Basophil% 0.6 % (0-1); Eosinophil# 0.32 X10^3/uL; Eosinophils% 4.1 % (0-5); Hematocrit 43.6 % (40-54); Hemoglobin 14.1 g/dL (13.0-16.5); Lymphocyte # 2.31 X10^3/ul (4.0); Lymphocyte % 29.4 % (19-41); Mean Corp Hgb Conc 32.3 g/dL (32-36); Mean Corpuscular Volume 92.8 fL (80-94); Mean Platelet Vol. 9.1 fl (6.2-12.0); Monocyte# 0.62 X10^3/uL; Monocyte% 7.9 % (0-10); NRBC Flagged by Analyzer 0 % (0-5); Neutrophil # 4.54 X10^3/uL (2.7-7.7); Neutrophil % 57.7 % (47-70); Platelet Count 324 K/mm3 (150-450); RBC Distribution Width CV 12.5 % (11.6-14.6); RBC Distribution Width SD 42.6 fl (35.1-43.9); White Blood Count 7.9 K/mm3 (4.4-11.0)
[2019-07-21 22:15] LABS: Alcohol, Blood (Medical)-Serum < 3.0 mg/dL
[2019-07-21 22:17] LABS: Anion Gap 7 (5-15); BUN 15 mg/dL (7-18); BUN/Creat Ratio 14.9 RATIO (10-20); Calcium,Total 8.9 mg/dL (8.5-10.1); Chloride 108 mmol/L (98-107); Creatinine, Serum 1.01 mg/dL (0.70-1.30); EST Glomerular Filtration Rate 90 mL/min (>60); Est Glom Filt Rate - Afr Amer 109 mL/min (>60); Estimated Creatinine Clearance 104.03 ml/min; Glucose 111 mg/dL (74-106); Sodium Level 143 mmol/L (136-145)
[2019-07-21 22:27] LABS: Amphetamine Urine VISTA NEGATIVE (<1000 ng/mL); Barbiturate Urine VISTA NEGATIVE (< 200 ng/mL); Benzodiazepine Urine VISTA NEGATIVE (< 200 ng/mL); Cocaine Urine VISTA NEGATIVE (< 300 ng/mL); Ecstacy Urine VISTA NEGATIVE (< 500 ng/mL); Methadone Urine VISTA NEGATIVE (< 300 ng/mL); PCP Urine VISTA NEGATIVE (< 25 ng/mL); THC Urine VISTA NEGATIVE (< 50 ng/mL); Vista UDS pH Range 6
--- NOTE | 2019-07-21 22:36 | ED.RN ---
CRISIS CALLED TO SEE PATIENT
--- NOTE | 2019-07-21 22:54 | ED.VISSUMM ---
- ER Visit Summary Date of Service: 07/21/19 Chief Complaint: [Suicidal ideation] History of Present Illness: The patient is a 34 M [presents to the emergency department with thoughts of self-harm. Patient is frustrated because he is had thoughts today and flashbacks of his stepdad's a year ago. Patient also states that he was having thoughts about his best friend who while in the [employer] years ago when he was 19 years old. Patient also frustrated that he can have hot lunch at work and only cold lunches. Patient does have prior history of attempted suicide by hanging. Today he grabbed a butter knife and attempted to cut his arms. Patient also with thoughts of wanting to harm others if they were to come to work with hot lunch. She denies any auditory or visual hallucinations.] Physical Examination: [HEENT-PERRLA, EOMI. Cranial nerves II through XII grossly intact. TMs clear. Mucous membranes moist. No adenopathy. Cardiovascular-regular rate and rhythm without murmur or ectopy Lungs-clear to auscultation, chest wall stable without crepitus or subcu emphysema Abdomen-normoactive bowel sounds, soft, nontender, no rebound or rigidity, no peritoneal signs. Extremities-intact ?4, normal range of motion, normal pulses area patient does have superficial abrasion to his left forearm and left hand.] Test Results: [CBC with it was normal. Chemistries normal. Tox screen was negative. Alcohol was negative.] Emergency Department Course and Treatment: [] Treatment Plan: [Will be evaluated by crisis.] Disposition: [Pending evaluation by crisis] Impression: [Suicidal ideation Depression] This note was generated with [employer] dictation software. It may contain incorrect words, spelling, and punctuation that were not noted in review of the chart prior to signing ED Disposition - Plan for ED Patient: Referrals: Leonard Dejesus Chi, MD [Primary Care Provider] -
[2019-07-21 23:18] VITALS: RESP 16
--- NOTE | 2019-07-21 23:25 | ED.RN ---
CRISIS HERE TO SEE PATIENT
[2019-07-22 00:30] VITALS: RESP 16
[2019-07-22] MEDS: QUEtiapine 100 MG Tablet 150 MG PO (00:41)
[2019-07-22] MEDS: lamoTRIgine 100 MG Tablet PO (00:41)
[2019-07-22] MEDS: DOXEPIN HCL 50 MG CAPSULE PO (00:41)
[2019-07-22] MEDS: Magnesium Hydroxide 30 ML UDC PO (00:47)
--- NOTE | 2019-07-22 01:36 | ED.RN ---
PATIENT KEEPS PACING AROUND THE ROOM LOOKING FOR SOMETHING TO HANG HIMSELF OR HURT HIMSELF WITH. PATIENT AT THIS TIME NOT ABLE TO BE REDIRECTED. PATIENT MOVED TO ROOM 4. ROOM COMPLETELY STRIPPED AT THIS TIME. MATTRESS PLACED ON THE FLOOR. PATIENT MOVED TO ROOM WITH CAMERA. ALL OBJECTS REMOVED FROM THE ROOM THAT CAN BE. PATIENT ADVISED IF NOT ABLE TO CONTROL HIMSELF HE WILL BE RESTRAINED FOR HIS SAFETY. PATIENT KEEPS ADVISING THAT HE WILL BE BY THE MORNING ONE WAY OR ANOTHER.
[2019-07-22] MEDS: LORazepam 2 MG/ML Syringe 1 MG IM (02:11)
--- NOTE | 2019-07-22 02:39 | ED.RN ---
PATIENT HAS BEEN ACCEPTED TO [facility] [phone]
[2019-07-22 08:53] VITALS: BP 139/76; PULSE 82; RESP 16; TEMP 36.4; O2SAT 97
== END 2019-07-22 09:13 ==
LOC: ED 21:55
PROVIDERS: Emergency Provider Emergency Medicine; Family Provider Family Medicine Geriatric Medicine; PCP Family Medicine Geriatric Medicine
DX: F32.9 Major depressive disorder, single episode, unspecified (principal); R45.851 Suicidal ideations; F20.9 Schizophrenia, unspecified; Z79.899 Other long term (current) drug therapy; Z91.5 Personal history of self-harm; Z87.891 Personal history of nicotine dependence
CPT/HCPCS: 80048; 80307; 80320; 85025; 96372; 99284; G0480

== ENCOUNTER → 2019-07-30 12:24 | Outpatient (CLI) | payer MEDICAID, SELFPAY ==
[2019-07-21 21:26] VITALS: BMI 29.3
--- NOTE | 2019-07-30 12:26 | MRI_ITS ---
STUDY: MRI LEFT KNEE REASON FOR EXAM: Male, 34 years old. Lateral left knee pain for 2 months. TECHNIQUE: Standardized fat and water weighted pulse sequences were obtained in all 3 orthogonal planes. COMPARISON: X-rays of the left knee dated June 07, 2019. FINDINGS: Normal medial meniscus. Normal hyaline cartilage of the medial femorotibial compartment. Normal medial femoral condyle and tibial plateau. Normal medial collateral ligamentous complex (MCL). Normal distal semimembranosus, gracilis and semitendinosus tendons. Normal lateral meniscus. Normal hyaline cartilage of the lateral femorotibial compartment. Minimal subchondral cyst formation at the ACL insertion (sagittal series 4 image 13). Normal proximal tibiofibular articulation. Normal lateral collateral (fibular) ligament. Normal popliteus tendon. Normal biceps femoris tendon. Normal anterior cruciate ligament (ACL). Normal posterior cruciate ligament (PCL). Normal congruent patellofemoral articulation. Minimal surface irregularity of the articular cartilage of the medial and lateral patellar facets (axial series 2 images 6-10) Normal medial and lateral patellar retinaculum. Normal quadriceps tendon. Normal patellar tendon. Normal Hoffa's fat pad. Small joint effusion (axial series 2 image 9). The soft tissues are unremarkable. The otherwise visualized osseous structures are unremarkable. MRI/Lower Ext Joint Only (Routine) IMPRESSION: Minimal subchondral cyst formation at the ACL insertion. Minimal surface irregularity of the articular cartilage of the medial and lateral patellar facets. Small joint effusion. No other abnormality. Electronically Signed: Brandyn Judd MD at 13:55 EDT , Service support ,
== END ==
PROVIDERS: Family Provider Family Medicine Geriatric Medicine; PCP Family Medicine Geriatric Medicine; Referring Provider Orthopaedic Surgery; Visit Provider Orthopaedic Surgery
DX: M25.562 Pain in left knee (principal)
CPT/HCPCS: 73721

== ENCOUNTER 2019-08-09 16:28 | Emergency (ER) | payer MEDICAID, SELFPAY ==
[2019-08-09 16:33] VITALS: BP 146/99; PULSE 110; RESP 16; TEMP 36.7; O2SAT 95; BMI 30.9
--- NOTE | 2019-08-09 17:18 | ED.VIS.GEN ---
History of Present Illness Chief Complaint: Suicidal Informant: Patient Onset: Today Narrative: Patient presents with staff member from nursing home. Patient states he almost had a seizure this morning. He states his roommate even told staff members that he had fallen to the floor and was shaking. Things were out of his dresser. Patient is upset because staff still made him go to workshop. Patient states that he has had suicidal thoughts all day. When asked if he has any thoughts about how he would hurt himself, he states I know how I will kill myself. He states that he will cut himself with a knife. He states 2 weeks ago he tried to cut his foot up with a butter knife. At that time he was transferred to [facility]. Patient states he is also hearing multiple voices. This is occurred in the past but restarted today. He states the voices are telling him that he should and himself and that nobody cares about him. Past Medical History - Allergies and Home Meds Allergies/Adverse Reactions: Allergies carrot Allergy (Verified 08/09/19 16:32) Swelling Primary Care Physician: Leonard Dejesus Chi, MD [Primary Care Provider] - Doctors: Elvis, neurology in [place] Prior records reviewed: Yes Past Medical History: - - Reviewed Lives: - - custodial Smoking Status: Never smoker Review of Systems General: Denies: Chills, Fever Eyes: Denies: Visual changes - bilaterally ENT: Denies: Bilateral ear pain Cardiovascular: Denies: Chest pain Respiratory: Denies: Dyspnea, Cough Gastrointestinal: Denies: Abdominal pain Genitourinary: Denies: Dysuria Musculoskeletal: Denies: Myalgias, Arthralgias Skin: Denies: Rash Psych: Reports: Depression, Suicidal thoughts Hematologic: Denies: Easy bruising Allergy: Denies: Uticaria Physical Exam Vital Signs/Narrative: Vital Signs Temp Pulse Resp BP Pulse Ox 08/09/19 16:33 98.1 F 110 H 16 146/99 H 95 Inital Vital Signs reviewed: Yes General: Well nourished, Well developed Head: Normocephalic ENT: Moist mucous membranes Cardiovascular: Regular rate, Regular rhythm Respiratory: No distress, CTA bilaterally Abdomen: Soft, Nontender Back: Nontender Extremities: Nontender Skin: Normal color, No rash Neurological: Alert, Oriented x3 Psychological: Normal affect Diagnostic/Tx/Re-eval Laboratory Results 08/09/19 08/09/19 08/09/19 17:13 17:24 17:24 WBC 8.9 RBC 4.54 L Hgb 13.6 Hct 41.7 MCV 91.9 MCH 30.0 MCHC 32.6 RDW Std Deviation 42.9 RDW Coeff of Prisca 12.7 Plt Count 319 MPV 9.1 Immature Gran % (Auto) 0.100 Neut % (Auto) 61.9 Lymph % (Auto) 25.1 [place] % (Auto) 8.5 Eos % (Auto) 4.0 Baso % (Auto) 0.4 Absolute Neuts (auto) 5.5 Absolute Lymphs (auto) 2.23 Nucleated RBC % 0 Sodium 140 Potassium 3.7 Chloride 111 H Carbon Dioxide 22.0 Anion Gap 7 BUN 20 H Creatinine 1.05 Estim Creat Clear Calc 100.06 Est GFR (MDRD) Af Amer 105 Est GFR (MDRD) Non-Af 86 BUN/Creatinine Ratio 19.0 Glucose 111 H Calcium 8.5 Urine Opiates Screen NEGATIVE Urine Methadone Screen NEGATIVE Ur Barbiturates Screen NEGATIVE Ur Phencyclidine Scrn NEGATIVE Ur Amphetamines Screen NEGATIVE U Methamphetamin-MDMA NEGATIVE U Benzodiazepines Scrn NEGATIVE Urine Cocaine Screen NEGATIVE U Cannabinoids Screen NEGATIVE Ur Drug Screen Comment Ethyl Alcohol 08/09/19 17:24 WBC RBC Hgb Hct MCV MCH MCHC RDW Std Deviation RDW Coeff of Prisca Plt Count MPV Immature Gran % (Auto) Neut % (Auto) Lymph % (Auto) [place] % (Auto) Eos % (Auto) Baso % (Auto) Absolute Neuts (auto) Absolute Lymphs (auto) Nucleated RBC % Sodium Potassium Chloride Carbon Dioxide Anion Gap BUN Creatinine Estim Creat Clear Calc Est GFR (MDRD) Af Amer Est GFR (MDRD) Non-Af BUN/Creatinine Ratio Glucose Calcium Urine Opiates Screen Urine Methadone Screen Ur Barbiturates Screen Ur Phencyclidine Scrn Ur Amphetamines Screen U Methamphetamin-MDMA U Benzodiazepines Scrn Urine Cocaine Screen U Cannabinoids Screen Ur Drug Screen Comment Ethyl Alcohol < 3.0 - Medical Decision Making Patient was seen by [facility] from social work. Attempts are being made for placement. Patient is been cooperative throughout his ED stay. Patient is medically cleared for transfer to psychiatric facility. ED Disposition - Plan for ED Patient: Disposition: Psychiatric Hospital or Unit Diagnosis: Suicidal ideation Referrals: Leonard Dejesus Chi, MD [Primary Care Provider] -
[2019-08-09 17:35] LABS: Absolute Lymphocyte Count 2.23 X10^3/uL (0.83-4.51); Absolute Neutrophil Count 5.5 X10^3/uL (2.0-7.7); Basophil# 0.04 X10^3/uL; Basophil% 0.4 % (0-1); Eosinophil# 0.36 X10^3/uL; Hematocrit 41.7 % (40-54); Hemoglobin 13.6 g/dL (13.0-16.5); Lymphocyte # 2.23 X10^3/ul (4.0); Lymphocyte % 25.1 % (19-41); Mean Corp Hgb Conc 32.6 g/dL (32-36); Mean Corpuscular Volume 91.9 fL (80-94); Mean Platelet Vol. 9.1 fl (6.2-12.0); Monocyte# 0.76 X10^3/uL; Monocyte% 8.5 % (0-10); NRBC Flagged by Analyzer 0 % (0-5); Neutrophil # 5.49 X10^3/uL (2.7-7.7); Neutrophil % 61.9 % (47-70); Platelet Count 319 K/mm3 (150-450); RBC Distribution Width CV 12.7 % (11.6-14.6); RBC Distribution Width SD 42.9 fl (35.1-43.9); Red Blood Count 4.54 M/mm3 (4.6-6.2); White Blood Count 8.9 K/mm3 (4.4-11.0)
[2019-08-09 17:49] LABS: Anion Gap 7 (5-15); BUN 20 mg/dL (7-18); Calcium,Total 8.5 mg/dL (8.5-10.1); Chloride 111 mmol/L (98-107); Creatinine, Serum 1.05 mg/dL (0.70-1.30); EST Glomerular Filtration Rate 86 mL/min (>60); Est Glom Filt Rate - Afr Amer 105 mL/min (>60); Estimated Creatinine Clearance 100.06 ml/min; Glucose 111 mg/dL (74-106); Potassium 3.7 mmol/L (3.5-5.1); Sodium Level 140 mmol/L (136-145)
[2019-08-09 18:02] LABS: Amphetamine Urine VISTA NEGATIVE (<1000 ng/mL); Barbiturate Urine VISTA NEGATIVE (< 200 ng/mL); Benzodiazepine Urine VISTA NEGATIVE (< 200 ng/mL); Cocaine Urine VISTA NEGATIVE (< 300 ng/mL); Ecstacy Urine VISTA NEGATIVE (< 500 ng/mL); Methadone Urine VISTA NEGATIVE (< 300 ng/mL); PCP Urine VISTA NEGATIVE (< 25 ng/mL); THC Urine VISTA NEGATIVE (< 50 ng/mL); Vista UDS pH Range 5
[2019-08-09 18:08] LABS: Alcohol, Blood (Medical)-Serum < 3.0 mg/dL
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
[2019-08-09 18:16] VITALS: RESP 16
--- NOTE | 2019-08-09 19:27 | CM.ED ---
Social Work Clinicals faxed to [facility]. Pending approval. Glo Herrera CHEMICAL MIXER, JACQUELINE
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
[2019-08-09] MEDS: DOXEPIN HCL 50 MG CAPSULE PO (21:04)
[2019-08-09] MEDS: Benztropine 2 MG Tablet 1 MG PO (21:04)
[2019-08-09] MEDS: QUEtiapine 100 MG Tablet 300 MG PO (21:04)
[2019-08-09] MEDS: lamoTRIgine 100 MG Tablet PO (21:04)
[2019-08-09] MEDS: Lithium Carbonate 300mg Capsule 300 MG PO (21:04)
[2019-08-09 21:09] VITALS: BP 126/89; PULSE 82; RESP 16; TEMP 36.9; O2SAT 93
--- NOTE | 2019-08-09 21:55 | CM.ED ---
Social Work Telephone call from [facility]. They are unable to accept patient at this time. Telephone call to [facility], intake. Referral placed. [facility] to contact main ED with outcome as ED social work end of work day. Glo PACKER, JACQUELINE
[2019-08-10] VITALS (11 sets, daily range): BP systolic 108–122; BP diastolic 72–88; PULSE 76–88; RESP 14–18; TEMP 36.9; O2SAT 94–97
[2019-08-10 00:53] LABS: Mucous, Urine 0 SEEN /hpf (<or=2+); Red Blood Cells-Urine 0 SEEN /hpf (0-5); Squamous Epithelial Cells - UA 0 SEEN /hpf (0-5); White Blood Cells 0 SEEN /hpf (0-5)
[2019-08-10 01:30] LABS: Color, Urine Yellow (Yellow); Glucose, Dipstick Normal (Normal); Ketone-Dipstick Negative (Negative); Leukocyte Esterase-Dipstick Negative /ul (Negative); Nitrite-Dipstick Negative (Negative); Occult Blood-Urine Negative /ul (Negative); Protein-Dipstick Negative (Negative); Urine Bilirubin Dipstick Negative (Negative); Urine Clarity Sl. Cloudy (Clear); Urine Urobilinogen Normal (Normal)
[2019-08-10 01:39] LABS: Bacteria 2+ /hpf (None Seen)
--- NOTE | 2019-08-10 05:35 | ED.RN ---
Called [facility] for update and they stated patient was denied from their program.
--- NOTE | 2019-08-10 05:42 | NURSING ---
CALLED [facility] AT [id number] SINCE PATIENT WAS DENIED [facility]
--- NOTE | 2019-08-10 06:56 | NURSING ---
FAXED CHART TO [facility]
--- NOTE | 2019-08-10 07:38 | NURSING ---
[facility] IN ROOM
[2019-08-10] MEDS: Lithium Carbonate 300mg Capsule 300 MG PO (10:57)
[2019-08-10] MEDS: lamoTRIgine 100 MG Tablet PO (10:57)
[2019-08-10] MEDS: Benztropine 2 MG Tablet 1 MG PO (10:57)
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
--- NOTE | 2019-08-10 15:39 | NURSING ---
ACCEPTED AT [facility]
--- NOTE | 2019-08-10 15:56 | ED.RN ---
RN REPORT GIVEN TO CONCHIS AT [facility]. NO FURTHER QUESTIONS OR CONCERNS FROM HER.
[2019-08-14 12:22] LABS: Lamotrigine (Lamictal) Level 2.7 ug/mL (2.0-20.0)
== END 2019-08-10 20:20 ==
PROVIDERS: Emergency Provider Emergency Medicine; Family Provider Family Medicine Geriatric Medicine; PCP Family Medicine Geriatric Medicine
DX: F32.9 Major depressive disorder, single episode, unspecified (principal); R45.851 Suicidal ideations; R45.1 Restlessness and agitation; Z79.899 Other long term (current) drug therapy
CPT/HCPCS: 36415; 80048; 80307; 80320; 81001; 82542; 85025; 99285; G0480

== ENCOUNTER 2019-08-25 16:18 | Emergency (ER) | payer MEDICAID, SELFPAY ==
[2019-08-25 16:19] VITALS: BP 149/82; PULSE 106; RESP 17; TEMP 36.7; O2SAT 96; BMI 31.0
--- NOTE | 2019-08-25 16:30 | ED.DCSUM_ITS ---
History of Present Illness Chief Complaint: Upper Extremity Injury Detail of Chief Complaint: Left shoulder pain for the past several days Informant: Patient Onset: Days - Last week Context: Sudden Onset Timing: Continuous Quality: Pain Location: Left shoulder region Current Severity: - - None Maximum Severity: Moderate - When he attempts to put his jacket on Worsened by: Movement Relieved by: Better with rest Associated Symptoms: Pain shooting from shoulder to his hand Narrative: Patient is a 34-year-old vlqqa-lggo-vzralsts male who resides at a [facility]. He was brought by staff for evaluation of right shoulder pain. There is no known history of recent trauma. He states he dislocated his shoulder when he was 15 years of age. He localizes the pain to the left shoulder region. He denies numbness or tingling in his fingers or hand. He denies weakness with grasp. He denies respiratory or cardiac symptoms. Prior similar symptoms: No Recent Illness/Hospitalization: No Past Medical History - Allergies and Home Meds Allergies/Adverse Reactions: Allergies carrot Allergy (Verified 08/25/19 16:19) Swelling Primary Care Physician: Leonard Dejesus Chi, MD [Primary Care Provider] - Prior records reviewed: Yes - Medication he has history of hyperactive airway disease and an affective di Lives: - - longterm Smoking Status: Former smoker Alcohol: None Drugs: None Review of Systems General: Denies: Chills, Fever, Malaise, Subjective, Sweats Cardiovascular: Denies: Chest pain, Palpitations Respiratory: Denies: Dyspnea, Cough Gastrointestinal: Denies: Nausea, Vomiting Musculoskeletal: Reports: Extremity Pain. Denies: Myalgias, Arthralgias, Neck pain, Back pain, Swelling Neurological: Denies: Headache, Weakness, Parasthesia, Numbness Hematologic: Denies: Easy bruising, Easy bleeding Allergy: Denies: Uticaria, Swelling of the mouth Physical Exam Vital Signs/Narrative: Vital Signs Temp Pulse Resp BP Pulse Ox 08/25/19 16:19 98.1 F 106 H 17 149/82 H 96 Inital Vital Signs reviewed: Yes General: Well nourished, Well developed, No Acute Distress Head: Normocephalic, Atraumatic Eyes: Perrl, EOMI ENT: Moist mucous membranes, No rhinorrhea, TM's clear Neck: Supple, Nontender Cardiovascular: Regular rate, Regular rhythm, No murmurs, Normal S1, Normal S2 Respiratory: No distress, CTA bilaterally Extremities: No edema, Tenderness - There is over the proximal left humerus. There is significant pain with abduction past 90 degrees passive and active. Axillary, median, radial and ulnar function intact. There is no pain the patient over the lateral medial epicondyle present no pain the patient of olecranon process or radial head. There is no pain the patient over the distal radius or ulna. There is no pain the patient with carpal bones, metacarpal bones or phalanges. Radial pulses palpable.. Negative for: Nontender Skin: Normal color, No rash Neurological: Alert, Oriented x3, Cranial nerves II-XII grossly intact, Normal Strength, Normal Sensation Psychological: Normal affect Diagnostic/Tx/Re-eval Chest X-Ray - ED: Read by ED Physician, - - Your x-ray of the left shoulder was obtained and interpreted by me as negative. There is no evidence of fracture, subluxation or dislocation shoulder. The AC joint appears normal. There is no evidence of consultation supra's tendon. The clavicle is normal. The portion of the lung that is visualized is normal. There is no rib fractures. 08/25/19 16:30 Shoulder min 2 Views [RAD] Stat - Medical Decision Making Since there is history of prior injury and there is significant pain with passive abduction past 90 degrees x-ray was obtained to evaluate for calcification supraspinatus tendon versus impingement syndrome versus other cause. He was medicated with 500 mg of Naprosyn. ED Disposition - Plan for ED Patient: Disposition: Home or Assisted Living Diagnosis: Impingement syndrome of left shoulder Instructions: Shoulder Impingement Syndrome Prescriptions: Naproxen [Naprosyn] 500 mg PO BID #14 tab Prescription Printed Referrals: Leonard Dejesus Chi, MD [Primary Care Provider] - 1 Week if not improving
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
[2019-08-25] MEDS: Naproxen 500 MG Tablet PO (16:37)
--- NOTE | 2019-08-25 16:47 | ED.RN ---
This RN called and left a message for La Bryan, legal guardian to this patient, asked La to call the ER to give consent for treatment.
--- NOTE | 2019-08-25 17:26 | ED.RN ---
DISCHARGE INSTRUCTIONS GIVEN TO AND REVIEWED WITH PATIENT, PATIENT DENIES QUESTIONS OR CONCERNS AND VOICES UNDERSTANDING OF DISCHARGE INSTRUCTIONS. PT AMBULATES OUT OF ROOM WITHOUT ISSUE. TITO KHALIL (COMMUNITY MARKETING COORDINATOR) CALLED FOR [facility] FOR PATIENT. PATIENT WAITING IN THE WAITING ROOM.
== END 2019-08-25 17:26 | disposition home or self-care (01) ==
PROVIDERS: Emergency Provider Emergency Medicine; Family Provider Family Medicine Geriatric Medicine; PCP Family Medicine Geriatric Medicine
DX: M75.42 Impingement syndrome of left shoulder (principal); J45.909 Unspecified asthma, uncomplicated; Z79.899 Other long term (current) drug therapy; Z87.891 Personal history of nicotine dependence
CPT/HCPCS: 73030

== ENCOUNTER 2019-08-25 20:34 | Emergency (ER) | payer MEDICAID, SELFPAY ==
[2019-08-25 16:19] VITALS: BMI 31.0
[2019-08-25 20:35] VITALS: BP 148/92; PULSE 101; RESP 22; TEMP 36.6; O2SAT 92; BMI 30.2
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
--- NOTE | 2019-08-25 21:05 | ED.RN ---
TELEPHONE CONSENT TO TREAT RECEIVED FORM HERIBERTO MARTINEZ [phone]
[2019-08-25 21:11] LABS: Absolute Lymphocyte Count 2.29 X10^3/uL (0.83-4.51); Absolute Neutrophil Count 4.8 X10^3/uL (2.0-7.7); Basophil# 0.06 X10^3/uL; Basophil% 0.8 % (0-1); Eosinophil# 0.22 X10^3/uL; Eosinophils% 2.8 % (0-5); Hematocrit 42.4 % (40-54); Hemoglobin 14.1 g/dL (13.0-16.5); Lymphocyte # 2.29 X10^3/ul (4.0); Lymphocyte % 28.7 % (19-41); Mean Corp Hgb Conc 33.3 g/dL (32-36); Mean Corpuscular Hgb 30.4 pg (27.0-32.0); Mean Corpuscular Volume 91.4 fL (80-94); Mean Platelet Vol. 9.1 fl (6.2-12.0); Monocyte# 0.62 X10^3/uL; Monocyte% 7.8 % (0-10); NRBC Flagged by Analyzer 0 % (0-5); Neutrophil # 4.77 X10^3/uL (2.7-7.7); Neutrophil % 59.8 % (47-70); Platelet Count 319 K/mm3 (150-450); RBC Distribution Width CV 12.5 % (11.6-14.6); RBC Distribution Width SD 41.5 fl (35.1-43.9); Red Blood Count 4.64 M/mm3 (4.6-6.2)
[2019-08-25 21:24] LABS: Amphetamine Urine VISTA NEGATIVE (<1000 ng/mL); Barbiturate Urine VISTA NEGATIVE (< 200 ng/mL); Benzodiazepine Urine VISTA NEGATIVE (< 200 ng/mL); Cocaine Urine VISTA NEGATIVE (< 300 ng/mL); Ecstacy Urine VISTA NEGATIVE (< 500 ng/mL); Methadone Urine VISTA NEGATIVE (< 300 ng/mL); PCP Urine VISTA NEGATIVE (< 25 ng/mL); THC Urine VISTA NEGATIVE (< 50 ng/mL); Vista UDS pH Range 7
[2019-08-25 21:33] LABS: Anion Gap 7 (5-15); BUN 18 mg/dL (7-18); BUN/Creat Ratio 21.6 RATIO (10-20); Calcium,Total 8.8 mg/dL (8.5-10.1); Chloride 109 mmol/L (98-107); Creatinine, Serum 0.83 mg/dL (0.70-1.30); EST Glomerular Filtration Rate 113 mL/min (>60); Est Glom Filt Rate - Afr Amer 137 mL/min (>60); Estimated Creatinine Clearance 126.59 ml/min; Glucose 94 mg/dL (74-106); Potassium 3.8 mmol/L (3.5-5.1); Sodium Level 141 mmol/L (136-145)
[2019-08-25 22:00] VITALS: RESP 18
--- NOTE | 2019-08-25 22:08 | ED.RN ---
CALLED [facility] TO SEE THIS PT, ANSHUL IS HOUSEMAN
[2019-08-25 22:10] LABS: Alcohol, Blood (Medical)-Serum < 3.0 mg/dL
[2019-08-25 23:00] VITALS: RESP 20
[2019-08-26] MEDS: LORazepam 1 MG Tablet 2 MG PO (00:27)
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
[2019-08-26 01:00] VITALS: BP 132/99; PULSE 81; RESP 18; O2SAT 100
--- NOTE | 2019-08-26 01:32 | ED.RN ---
PT LAYING DOWN. PT REQUESTS LIGHTS TURNED OFF IN THE ROOM. PT AWARE HE WILL BE TRANSFERRED TO [facility] AND THE UNIT HE IS ASSIGNED
--- NOTE | 2019-08-26 01:35 | ED.RN ---
LEFT MESSAGE FOR LEGAL GUARDIAN TO UPDATE ON STATUS
[2019-08-26 02:59] VITALS: BP 132/79; PULSE 81; RESP 18; O2SAT 99
== END 2019-08-26 02:59 ==
PROVIDERS: Emergency Medicine; Emergency Provider Emergency Medicine; Family Provider Family Medicine Geriatric Medicine; PCP Family Medicine Geriatric Medicine
DX: F20.9 Schizophrenia, unspecified (principal); R45.850 Homicidal ideations; F31.9 Bipolar disorder, unspecified; M75.42 Impingement syndrome of left shoulder; J45.909 Unspecified asthma, uncomplicated; Z79.1 Long term (current) use of non-steroidal anti-inflammatories (NSAID); Z79.899 Other long term (current) drug therapy; Z87.891 Personal history of nicotine dependence
CPT/HCPCS: 73030; 80048; 80307; 80320; 85025; 99283; 99284; G0480